=== PATIENT | male | born 1950 | race Caucasian/White ===

== ENCOUNTER 2022-09-21 08:19 | Emergency (ER) | payer OTHER ==
--- OUTSIDE RECORDS SUMMARY | 2022-09-21 08:24 | XMS REPORT | Continuity of Care Document ---
:1950 Author Organization [facility] t Address [address] [facility] [address] [place] [address] Care Team Providers Name Role Phone Luan ALBRIGHT, Phil Fernando Primary Care Physician [phone] Dorcas Beard Attending Clinician Unavailable LINK, JASSON HOLLOWAY Attending Clinician Unavailable LINK, JASSON HOLLOWAY Admitting Clinician Unavailable Problems This patient has no known problems. Allergies, Adverse Reactions, Alerts This patient has no known allergies or adverse reactions. Social History Social Habit Start Date Stop Date Quantity Comments Source History of Current smoker [facility] Alcohol intake 2016-09-04 2016-09-[address] [facility] 00:00[facility]00 00:00:00 non-drinker of Medical Ce nter alcohol (finding) Tobacco use and 2016-09-03 2016-09-03 User of smokeless [facility]:00 tobacco [facility] Center Tobacco Comment 2016-09-03 2016-09-03 quit smoking [address] [facility] 00:00:00 00:00:00 yrs ago. dips 1 Medical C enter can per week on average Sex Assigned At [address] [facility] 00:[facility]00 00:00:00 [facility] Smoking Status Start Date Stop Date Source Ex-smoker 2016-09-03 00:00:00 2016-09-03 00:00:00 [facility] Medications Ordered Filled Start Stop Current Ordering Indication Dosage Frequency Signature Comments Components Source Medication Medication Date Date Medication? Clinician (SIG) Name Name glimepiride Yes 4mg Take [address] (AMARYL) 4 5-26 [facility] tablet 18:04: every Medical 04 morning Center before breakfast. irbesartan Yes 300mg QD Take [address] (AVAPRO) 5-26 mg [facility] 300 MG 18:04: mouth Medical tablet 04 nightly. Center atorvastati Yes 40mg QD Take [address] (LIPITOR) 5-26 by mouth Luke s 40 MG 18:04: nightly. Medical tablet 04 Center aspirin 81 Yes 81mg QD Take [address] [facility] EC 5-26 by [facility] tablet 18:04: daily. Medical 04 Center metFORMIN Yes 1000mg Take 1,[address] (GLUCOPHAGE 5-26 mg [facility] ) 1000 MG 18:04: mouth 2 Medic al tablet 04 (two) Center times daily with breakfast and dinner. Procedures This patient has no known procedures. Encounters Start End Encounter Admission Attending Care Care Encounter Source Date/Time Date/Time Type Type Clinicians Facility Department ID 2022-06-22 Outpatient Wells, [facility] [id number] Common 08:01:00 Dorcas [id number] [facility] 2022-05-20 [facility] [id number] Common 13:32:01 Dorcas [id number] [facility] 2022-03-11 Outpatient Wells, [facility] [id number] Common 07:16:00 Dorcas [address] [facility] 2022-01-22 Outpatient Wells, [facility] [id number] Common 10:12:04 Dorcas [id number] [facility] 2021-11-17 Outpatient Wells, [facility] [id number] Common 08:18:02 Dorcas [facility] 2021-10-14 Outpatient Wells, [facility] [id number] Common 11:22:02 Dorcas [facility] 2021-09-16 Outpatient Wells, [facility] [id number] Common 09:59:02 Dorcas [facility] 2021-08-22 Outpatient Wells, [facility] [id number] Common 07:59:01 Dorcas [facility] 2021-07-[address] [facility] [id number] Common 08:24:03 Dorcas [facility] 2021-05-[address] [facility] [id number] Common 14:33:11 Dorcas [facility] Results Test Description Test Time Test Comments Results Result Comments Source POCT-GLUCOSE METER 2016-09-04 11:46:00 Test Item Value Reference Range Interpretation Comme nts POC-GLUCOSE METER (KD) (test 82 mg/dL 70-110 TESTED AT [facility] [address] [facility] code = 1538) [facility] [id number] 0
[2022-09-21 08:58] LABS: Absolute Lymphocytes (CBC) 2.4 K/uL (0.7-4.9); Hematocrit 43.1 % (39.6-49.0); Lymphocytes % 31.9 % (15.3-44.8); MCV 86.1 fL (80-100); MPV 7.4 fL (7.6-11.3); Specific Gravity 1.023 (1.005-1.030); Urine Bacteria None Seen /HPF (<20); Urine Bilirubin NEGATIVE (Negative); Urine Blood Negative (Negative); Urine Clarity Clear (Clear); Urine Color Yellow (Yellow); Urine Glucose 2+ (Negative); Urine Mucus Slight /HPF (None Seen); Urine Protein 1+ (Negative); Urine RBC <5 /HPF (None Seen); Urine Urobilinogen Normal (Normal)
[2022-09-21] MEDS ORDERED: MORPHINE 4 MG/ML SYR ONE (09:02)
[2022-09-21] MEDS ORDERED: ONDANSETRON 4 MG/2 ML VIAL ONE (09:03)
[2022-09-21 09:15] LABS: Albumin 3.7 g/dL (3.4-5.0); Bilirubin Total 0.9 mg/dL (0.2-1.0); Potassium 4.1 mEq/L (3.5-5.1); Protein, Total 7.4 g/dL (6.4-8.2)
--- NOTE | 2022-09-21 09:19 | RAD REPORT ---
EXAM DESCRIPTION: CT - Stone Protocol - 09/21/2022 8:58 am CLINICAL HISTORY: Flank pain. FLANK PAIN COMPARISON: Stone Protocol dated 11/24/2016 TECHNIQUE: Axial images were obtained without oral or IV contrast. Lack of contrast limits solid org an and vascular assessment. The edygs-on-gayp spans the entirety of the system partially obscuring uppermost abdomen and lung bases. Coronal reformatted images were obtained and reviewed. All CT scans are performed using dose optimization technique as appropriate and may include automated exposure control or mA/KV adjustment according to patient size. FINDINGS: The lower lung acevedo are clear. Imaged portions of the liver and spleen show no suspicious findings on non-contrast imaging. The panc reas and adrenal glands are normal. No pathologic lymphadenopathy in the abdomen or pelvis. Small calculi are present involving both kidneys. No hydronephrosis. No bowel obstruction, free air, free fluid or abscess. Normal appendix noted.Sigmoid diverticulosis c rebecca without diverticulitis. Moderate lumbar degenerative changes. Aortoiliac atherosclerosis. IMPRESSION: Bilateral nephrolithiasis without hydronephrosis.
[2022-09-21] MEDS ORDERED: KETOROLAC 30 MG/ML INJ ONE (10:19)
--- NOTE | 2022-09-21 10:21 | ER ---
Nurse's Notes [facility] Name: Getachew Ervin Age: 71 yrs Sex: Male : 1950 Arrival Date: 09/21/2022 Time: 08:19 Bed 18 Private MD: Diagnosis: Calculus of kidney Presentation: 09/21 08:34 Chief complaint: Patient states: L flank pain that began 3-4 weeks ago. HX of kidney ss stones. Pt believes this may be another one. Denies N/V/D. Coronavirus screen: Client denies travel out of the [place] in the last 14 days. Ebola Screen: Patient denies exposure to infectious person. Patient denies travel to an Ebola-affected area in the 21 days before illness onset. Initial Sepsis Screen: Does the patient meet any 2 criteria? No. Patient's initial sepsis screen is negative. Does the patient have a suspected source of infection? No. Patient's initial sepsis screen is negative. Risk Assessment: Do you want to hurt yourself or someone else? Patient reports no desire to harm self or others. Onset of symptoms was August 2022. 08:34 Method Of Arrival: Ambulatory ss 08:34 Acuity: HERMINIO 3 ss Historical: - Allergies: 08:38 No Known Allergies; ss - PMHx: 08:38 Diabetes - NIDDM; GERD; Hyperlipidemia; Hypertension; Kidney stones; ss - Immunization history:: Client reports receiving the Tiago \\T\\ Tiago single-dose vaccine. - Social history:: Smoking status: Patient reports use of chewing tobacco. Screenin:51 [facility] ED Fall Risk Assessment (Adult) History of falling in the last 3 months, ap3 including since admission No falls in past 3 months (0 pts). Abuse screen: Denies threats or abuse. Nutritional screening: No deficits noted. Tuberculosis screening: No symptoms or risk factors identified. Assessment: 08:50 General: Appears in no apparent distress. Behavior is calm, cooperative. Pain: ap3 Complains of pain in left flank. Neuro: Level of Consciousness is awake, alert, obeys commands, Oriented to person, place, time, situation. Cardiovascular: Patient's skin is warm and dry. Respiratory: Airway is patent Respiratory effort is even, unlabored, Respiratory pattern is regular, symmetrical. GI: Bowel sounds present X 4 quads. Abd is soft. : Reports pain in left flank(s), for "a few weeks". Vital Signs: 08:34 BP 151 / 66; Pulse 78; Resp 16; Temp 98.5(O); Pulse Ox 97% on R/A; Weight 101.6 kg; ss Height 5 ft. 4 in. ; Pain 8/10; 09:55 BP 115 / 53; Pulse 69; Pulse Ox 95% on R/A; ap3 08:34 Body Mass Index 38.45 (101.60 kg, 162.56 cm) ss 08:34 Pain Scale: Adult ss ED Course: 08:22 Patient arrived in ED. mr 08:23 Scotty Brice PA is PHCP. doreen 08:23 Oscar Davis DO is Attending Physician. jmm 08:38 Diann Brasher, CARLY is Primary Nurse. ap3 08:38 Triage completed. ss 08:38 Arm band placed on right wrist. ss 08:47 Inserted saline lock: 22 gauge in right antecubital area, using aseptic technique. ap3 Blood collected. 08:47 Urinalysis w/ reflexes Sent. ap3 08:51 Patient has correct armband on for positive identification. Placed in gown. Bed in low ap3 position. Call light in reach. Side rails up X 1. Pulse ox on. NIBP on. Door closed. Noise minimized. 09:00 CT Stone Protocol In Process Unspecified. EDMS 10:47 No provider procedures requiring assistance completed. IV discontinued, intact, ap3 bleeding controlled, No redness/swelling at site. Pressure dressing applied. Administered Medications: 09:07 Drug: morphine IVP or IV 4 mg Route: IVP; Infused Over: 4 mins; Site: right antecubital;ap3 10:07 Follow up: Response: No adverse reaction; Pain is decreased ap3 09:07 Drug: Ondansetron IVP 4 mg Route: IVP; Site: right antecubital; ap3 10:07 Follow up: Response: No adverse reaction ap3 10:17 Drug: Ketorolac IVP 15 mg Route: IVP; Site: right antecubital; ap3 10:48 Follow up: Response: No adverse reaction ap3 Medication: 10:48 VIS not applicable for this client. ap3 Outcome: 10:21 Discharge ordered by . jmm 10:48 Discharged to home ambulatory. ap3 10:48 Condition: good 10:48 Discharge instructions given to patient, Instructed on discharge instructions, follow up and referral plans. medication usage, Demonstrated understanding of instructions, follow-up care, medications, Prescriptions given X 1. 10:52 Patient left the ED. ap3 Signatures: Dispatcher [employer] EDMS Scotty Brice PA PA jmm Rivera, Mary mr Ayana Poole RN RN Diann Brasher RN RN ap3
--- NOTE | 2022-09-21 10:22 | EDPHYS ---
Physician Documentation [facility] Name: Getachew Ervin Age: 71 yrs Sex: Male : 1950 Arrival Date: 09/21/2022 Time: 08:19 Bed 18 Private MD: ED Physician Oscar Davis HPI: 09/21 08:26 This 71 yrs old Male presents to ER via Ambulatory with complaints of Possible Kidney jmm Stone. 08:26 The patient complains of pain in the left flank. Onset: The symptoms/episode jmm began/occurred gradually. Is a 71-year-old male with history of diabetes mellitus, GERD, hyperlipidemia, hypertension, previous kidney stones the presents emerged part with complaints of ongoing left flank pain beginning approximately 3 to 4 weeks ago. Denies vomiting, fever. Pain will radiate into his left lower quadrant and groin. Patient states he has had multiple surgeries for his kidney stones.. Historical: - Allergies: 08:38 No Known Allergies; ss - PMHx: 08:38 Diabetes - NIDDM; GERD; Hyperlipidemia; Hypertension; Kidney stones; ss - Immunization history:: Client reports receiving the Tiago \T\ Tiago single-dose vaccine. - Social history:: Smoking status: Patient reports use of chewing tobacco. ROS: 08:26 Constitutional: Negative for fever, chills, and weight loss, Cardiovascular: Negative jmm for chest pain, palpitations, and edema, Respiratory: Negative for shortness of breath, cough, wheezing, and pleuritic chest pain. 08:26 Back: Positive for flank pain, on the left. 08:26 All other systems are negative. Exam: 08:26 Constitutional: This is a well developed, well nourished patient who is awake, alert, jmm and in no acute distress. Head/Face: atraumatic. Eyes: EOMI, no conjunctival erythema appreciated ENT: Moist Mucus Membranes Neck: Trachea midline, Supple Chest/axilla: Normal chest wall appearance and motion. Cardiovascular: Regular rate and rhythm. No edema appreciated Respiratory: Normal respirations, no respiratory distress appreciated Abdomen/GI: Non distended 08:26 Skin: General appearance color normal MS/ Extremity: Moves all extremities, no obvious deformities appreciated, no edema noted to the lower extremities Neuro: Awake and alert Psych: Behavior is normal, Mood is normal, Patient is cooperative and pleasant 08:26 Back: pain, that is moderate, of the left flank. Vital Signs: 08:34 BP 151 / 66; Pulse 78; Resp 16; Temp 98.5(O); Pulse Ox 97% on R/A; Weight 101.6 kg; ss Height 5 ft. 4 in. ; Pain 8/10; 09:55 BP 115 / 53; Pulse 69; Pulse Ox 95% on R/A; ap3 08:34 Body Mass Index 38.45 (101.60 kg, 162.56 cm) ss 08:34 Pain Scale: Adult ss MDM: 08:26 Patient medically screened. [facility] 10:20 Data reviewed: vital signs, nurses notes, lab test result(s), radiologic studies. I doreen considered the following discharge prescriptions or medication management in the emergency department Medications were administered in the Emergency Department. See MAR. Counseling: I had a detailed discussion with the patient and/or guardian regarding: the historical points, exam findings, and any diagnostic results supporting the discharge/admit diagnosis, radiology results, the need for outpatient follow up, to return to the emergency department if symptoms worsen or persist or if there are any questions or concerns that arise at home. 10:20 Differential diagnosis: nephrolithiasis, pyelonephritis, UTI, testicular torsion, [facility] diverticulitis, ruptured AAA, dissecting AAA. 09/21 08:35 Order name: CBC with Diff; Complete Time: 09:08 [facility] 09/21 08:35 Order name: CMP; Complete Time: 09:16 [facility] 09/21 08:35 Order name: Lipase; Complete Time: 09:16 [facility] 09/21 08:35 Order name: Urinalysis w/ reflexes; Complete Time: 08:59 [facility] 09/21 08:35 Order name: CT Stone Protocol; Complete Time: 09:19 [facility] 09/21 08:35 Order name: IV Saline Lock; Complete Time: 08:47 [facility] 09/21 08:35 Order name: Labs collected and sent; Complete Time: 08:47 [facility] Administered Medications: 09:07 Drug: morphine IVP or IV 4 mg Route: IVP; Infused Over: 4 mins; Site: right antecubital;ap3 10:07 Follow up: Response: No adverse reaction; Pain is decreased ap3 09:07 Drug: Ondansetron IVP 4 mg Route: IVP; Site: right antecubital; ap3 10:07 Follow up: Response: No adverse reaction ap3 10:17 Drug: Ketorolac IVP 15 mg Route: IVP; Site: right antecubital; ap3 10:48 Follow up: Response: No adverse reaction ap3 Disposition: 12:59 Co-signature as Attending Physician, Oscar Davis DO I was immediately available on-site ms3 in the Emergency Department for consultation in the care of the patient. Disposition Summary: 09/21/22 10:21 Discharge Ordered Location: Home [facility] Condition: Stable [facility] Diagnosis - Calculus of kidney [facility] Followup: [facility] - With: Private Physician - When: 2 - 3 days - Reason: Recheck today's complaints, Continuance of care, Re-evaluation by your physician Discharge Instructions: - Discharge Summary Sheet [facility] - Kidney Stones [facility] Forms: - Medication Reconciliation Form [facility] - Thank You Letter [facility] - Antibiotic Education [facility] - Prescription Opioid Use [facility] Prescriptions: - orphenadrine citrate 100 mg Oral Tablet Sustained Release - take 1 tablet by ORAL route 2 times per day As needed; 20 tablet; Refills: 0, [facility] Product Selection Permitted Signatures: Dispatcher [employer] Scotty Eden PA PA jmm Ayana Poole, Diann Anderson RN, RN RN ap3 Oscar Davis DO DO ms3
[2022-09-21 11:06] VITALS: TEMP 98.5
[2022-09-21 11:12] VITALS: BP 115/53; O2SAT 95
== END 2022-09-21 10:52 | disposition home or self-care (01) ==
LOC: ER 08:19
DX: N20.0 Calculus of kidney (principal); Z87.442 Personal history of urinary calculi; I10 Essential (primary) hypertension; F17.220 Nicotine dependence, chewing tobacco, uncomplicated
CPT/HCPCS: 85025; 81001; 36415; 83690; 80053; 76377; 74176; 96375; 96374; 99284; J2405

== ENCOUNTER 2023-08-19 06:24 | Emergency (ER) | payer OTHER ==
[2023-08-19] MEDS ORDERED: KETOROLAC 30 MG/ML INJ ONE (06:48)
[2023-08-19] MEDS ORDERED: ONDANSETRON 4 MG/2 ML VIAL ONE (06:48)
[2023-08-19] MEDS ORDERED: TAMSULOSIN 0.4 MG SR CAP ONE (06:48)
[2023-08-19] MEDS ORDERED: MORPHINE 4 MG/ML SYR ONE (06:49)
[2023-08-19] MEDS ORDERED: NA CHLORIDE 0.9% 1,000 ML ONE ×2 (06:49→08:34)
[2023-08-19 07:03] LABS: Absolute Basophils 0.1 K/uL (0-0.5); Absolute Eosinophils 0.2 K/uL (0-0.5); Absolute Lymphocytes (CBC) 2.3 K/uL (0.7-4.9); Absolute Monocytes 0.8 K/uL (0.1-1.3); Absolute Neutrophil 4.9 K/uL (1.8-8.0); Basophils % 1.4 % (0-1.3); Eosinophils % 2.7 % (0-4.4); Hematocrit 45.2 % (39.6-49.0); Lymphocytes % 27.9 % (15.3-44.8); MCH 28.2 pg (27.0-35.0); MCHC 33.2 g/dL (32.0-36.0); Monocytes % 9.7 % (3.3-12.3); Neutrophils % 58.3 % (41.7-73.7); Nucleated Red Blood Cells % 0.1 % (0-0); Platelets 234 thou/uL (152-406); RBC Red Blood Cell Count 5.31 M/uL (4.33-5.43); Red Cell Distribution Width 14.7 % (12.1-15.2)
[2023-08-19 07:17] LABS: Albumin 3.3 g/dL (3.4-5.0); Albumin/Globulin Ratio 0.9 (1.1-1.8); Anion Gap 9.1 mEq/L (5.0-15.0); Bilirubin Total 0.7 mg/dL (0.2-1.0); Globulin 3.6 g/dL (2.3-3.5); Potassium 4.1 mEq/L (3.5-5.1); Protein, Total 6.9 g/dL (6.4-8.2)
--- NOTE | 2023-08-19 07:38 | RAD REPORT ---
EXAM DESCRIPTION: CT - Abdomen Pelvis Wo Contrast - 08/19/2023 7:07 am CLINICAL HISTORY: Abdominal pain left flank pain COMPARISON: 2019. TECHNIQUE: Computed axial tomography of the abdomen and pelvis was obtained. IV and oral contrast we re not requested. All CT scans are performed using dose optimization technique as appropriate and may include automated exposure control or mA/KV adjustment according to patient size. FINDINGS: The evaluation of solid organs, vessels and bowel is limited secondary to the lack of con trast administration. 17 millimeter hepatic cyst unchanged likely cyst. Bilateral renal calculi. No hydronephrosis. Dense structures within the bowel have the appearance of ingested tablets Atherosclerosis. Mild stranding within the central mesenteric fat The spleen, pancreas, adrenals appear grossly normal. Small umbilical hernia contains fat The appendix is normal. Diverticula stem the colon without evidence diverticulitis Prostate gland is moderately enlarged. Spondylosis lumbar spine results in spinal stenosis Small left inguinal hernia contains fat IMPRESSION: Mild stranding within the central mesenteric fat may indicate mesenteritis Small bilateral nonobstructing renal calculi
[2023-08-19 07:54] LABS: Urine Bilirubin NEGATIVE (Negative); Urine Blood Negative (Negative); Urine Clarity Clear (Clear); Urine Color Light-Yellow (Yellow); Urine Glucose 4+ (Over) (Negative); Urine Ketones NEGATIVE (Negative); Urine Microscopic Reflex YN NO UMIC; Urine Nitrite NEGATIVE (Negative); Urine Protein NEGATIVE (Negative); Urine Urobilinogen Normal (Normal)
[2023-08-19] MEDS ORDERED: FAMOTIDINE 20 MG/2 ML VIAL IV ONE (08:33)
[2023-08-19] MEDS ORDERED: METRONIDAZOLE 500mg IVPB 500 MG/100 ML BAG IV ONE (08:34)
[2023-08-19] MEDS ORDERED: CIPROFLOXACIN 400mg IV 400 MG/200 ML BAG IV ONE (08:34)
--- NOTE | 2023-08-19 08:52 | EDPHYS ---
Physician Documentation [facility] Name: Getachew Ervin Age: 72 yrs Sex: Male : 1950 Arrival Date: 08/19/2023 Time: 06:24 Bed 17 Private MD: Sharad Roman HPI: 08/18 06:45 This 72 yrs old Male presents to ER via Ambulatory with complaints of sp4 Abdominal Pain. 06:45 72-year-old male presents with acute onset left flank pain pain sudden onset 2 days ago sp4 and intensifying this morning. Patient states pain is typical of his kidney stones. Patient has history of at least 5 prior kidney stones that had to be subjected to lithotripsy. . Historical: - Allergies: 06:37 No Known Allergies; rv - PMHx: 06:37 Diabetes - NIDDM; GERD; Hyperlipidemia; Hypertension; Kidney stones; rv - PSHx: 06:37 None; rv - Immunization history:: Adult Immunizations up to date. - Infectious Disease History:: Denies. - Social history:: Smoking status: Patient denies any tobacco usage or history of. - Family history:: not pertinent. ROS: 06:45 Constitutional: Negative for fever, chills, and weight loss, positive left flank pain sp4 and positive left groin pain 06:45 All other systems are negative, Exam: 06:45 Constitutional: This is a well developed, well nourished patient who is awake, alert, sp4 and in no acute distress. Head/Face: Normocephalic, atraumatic. Eyes: Pupils equal round and reactive to light, extra-ocular motions intact. Lids and lashes normal. Conjunctiva and sclera are not injected. Cornea within normal limits. Periorbital areas with no swelling, redness, or edema. ENT: Nares patent. No nasal discharge, no septal abnormalities noted. Tympanic membranes are normal and external auditory canals are clear. Oropharynx with no redness, swelling, or masses, exudates, or evidence of obstruction, uvula midline. Mucous membranes moist. Neck: Trachea midline, no thyromegaly or masses palpated, and no cervical lymphadenopathy. Supple, full range of motion without nuchal rigidity, or vertebral point tenderness. Chest/axilla: Normal chest wall appearance and motion. Nontender with no deformity. No lesions are appreciated. Cardiovascular: Regular rate and rhythm with a normal S1 and S2. No gallops, murmurs, or rubs. Normal PMI, no JVD. No pulse deficits. Respiratory: Lungs have equal breath sounds bilaterally, clear to auscultation and percussion. No rales, rhonchi or wheezes noted. No increased work of breathing, no retractions or nasal flaring. Abdomen/GI: Soft, with normal bowel sounds. No distension or tympany. No guarding or rebound. No evidence of tenderness throughout. Back: No spinal tenderness. No costovertebral tenderness. Male : Normal genitalia with no discharge or lesions. Skin: Warm, dry with normal turgor. Normal color with no rashes, no lesions, and no evidence of cellulitis. MS/ Extremity: Pulses equal, no cyanosis. Neurovascular intact. Full, normal range of motion. Neuro: Awake and alert, GCS 15, oriented to person, place, time, and situation. Cranial nerves II-XII grossly intact. Motor strength 5/5 in all extremities. Sensory grossly intact. Psych: Awake, alert, with orientation to person, place and time. Behavior, mood, and affect are within normal limits 08:58 ECG was reviewed by the Attending Physician. [place] Vital Signs: 06:35 Pulse 69; Resp 18; Temp 98; Pulse Ox 99% ; Weight 100.24 kg; Height 5 ft. 4 in. ; rv 06:35 BP 144 / 64; rv 07:30 BP 137 / 68; Pulse 65; Resp 16; Pulse Ox 95% ; bp 08:30 BP 142 / 64; Pulse 57; Resp 16; Pulse Ox 96% ; bp 10:30 BP 139 / 67; Pulse 63; Resp 16; Pulse Ox 98% ; bp 06:35 Body Mass Index 37.93 (100.24 kg, 162.56 cm) rv [place] Coma Score: 06:45 Eye Response: spontaneous(4). Motor Response: obeys commands(6). Verbal Response: sp4 oriented(5). Total: 15. MDM: 06:49 Differential Diagnosis altered mental status, sepsis, flu, Acute left ureteral sp4 calculus. Data reviewed: vital signs, nurses notes, lab test result(s), radiologic studies. Consideration of Admission/Observation Escalation of care including admission/observation considered. Transition of care: After a detail discussion of the patient's case, care is transferred to Kulwinder Barton MD. 06:56 Patient medically screened. sp4 07:13 Transition of care: After a detail discussion of the patient's case, care is sp4 transferred to Sharad Vargas MD. 08/18 06:41 Order name: CBC with Diff; Complete Time: 08:02 sp4 08/18 06:41 Order name: CMP; Complete Time: 08:02 sp4 08/18 06:41 Order name: Lipase; Complete Time: 08:02 sp4 08/18 06:41 Order name: Urinalysis w/ reflexes; Complete Time: 08:02 sp4 08/18 06:44 Order name: CT Abd/Pelvis - Without Contrast; Complete Time: 08:02 sp4 08/18 08:19 Order name: EKG; Complete Time: 08:20 farhat 08/18 06:41 Order name: IV Saline Lock; Complete Time: 06:54 sp4 08/18 06:41 Order name: Labs collected and sent; Complete Time: 06:54 sp4 08/18 08:19 Order name: EKG - Nurse/Tech; Complete Time: 08:57 farhat EC:58 Rate is 85 beats/min. Rhythm is regular. QRS [place] is Normal. DC interval is normal. QRS farhat interval is normal. QT interval is normal. No Q waves. T waves are Normal. No ST changes noted. Clinical impression: NSR w/ Non-specific ST/T Changes and No evidence of ischemia. Interpreted by me. Reviewed by me. Administered Medications: 06:55 Drug: Ondansetron IVP 4 mg IVP once; over 2 minutes Route: IVP; Site: right antecubital;ha1 07:31 Follow up: Response: No adverse reaction bp 06:55 Drug: Ondansetron IVP 4 mg IVP once; over 2 minutes Route: IVP; Site: right antecubital;ha1 07:31 Follow up: Response: No adverse reaction bp 06:57 Drug: Ketorolac IVP 30 mg IVP once Route: IVP; Site: right antecubital; ha1 07:31 Follow up: Response: No adverse reaction bp 06:58 Drug: NS 0.9% IV 1000 ml IV at 1 bolus Per protocol; 1000 mL bolus Route: IV; Rate: 1 ha1 bolus; Site: right antecubital; 11:00 Follow up: IV Status: Completed infusion bp 06:58 Drug: Flomax PO 0.4 mg PO once Route: PO; ha1 07:31 Follow up: Response: No adverse reaction bp 06:59 Drug: morphine IVP or IV 4 mg IVP once over 4 mins Route: IVP; Infused Over: 4 mins; ha1 Site: right antecubital; 07:31 Follow up: Response: No adverse reaction bp 08:30 Drug: NS 0.9% IV 1000 ml IV at 125 ml/hr continuous Route: IV; Rate: 125 ml/hr; Site: bp right antecubital; 11:00 Follow up: IV Status: Completed infusion; IV Intake: 1000ml bp 08:30 Drug: metroNIDAZOLE IVPB 500 mg 100 ml IVPB at 200 ml/hr once over 30 mins Volume: 100 bp ml; Route: IVPB; Rate: 200 ml/hr; Infused Over: 30 mins; Site: right antecubital; 11:01 Follow up: IV Status: Completed infusion; IV Intake: 100ml bp 08:30 Drug: Famotidine IVP 20 mg IVP once; dilute with 10 mL 0.9% NaCl; give over 2 minutes bp Route: IVP; Site: right antecubital; 11:00 Follow up: Response: No adverse reaction bp 08:43 Drug: Ciprofloxacin IVPB 400 mg 200 ml IVPB once over 60 mins Volume: 200 ml; Route: bp IVPB; Infused Over: 60 mins; Site: right antecubital; 11:01 Follow up: IV Status: Completed infusion; IV Intake: 200ml bp Disposition Summary: 08/19/23 08:52 Discharge Ordered Notes: Location: Home farhat Problem: new farhat Symptoms: have improved farhat Condition: Stable farhat Diagnosis - Abdominal tenderness - mild stranding within the central mesentary, Mesenteritis farhat Followup: farhat - With: Private Physician - When: 2 - 3 days - Reason: Recheck today's complaints, Continuance of care, Re-evaluation by your physician Followup: farhat - With: Ulysses Maddox MD - When: 2 - 3 days - Reason: Recheck today's complaints, Re-evaluation by your physician Discharge Instructions: - Discharge Summary Sheet farhat - Abdominal Pain, Adult farhat - Abdominal Pain, Adult, [id number] farhat - Aspirin and Your Heart farhat Forms: - Medication Reconciliation Form [place] - Antibiotic Education farhat - Prescription Opioid Use farhat - Patient Portal Instructions [place] - Leadership Thank You Letter [place] Prescriptions: - Flagyl 500 mg Oral tablet - take 1 tablet ORAL route every 8 hours for 7 days; 21 tablet; Refills: 0, [place] Product Selection Permitted - Zofran 4 mg Oral Tablet - take 1 tablet ORAL route every 12 hours As needed; 20 tablet; Refills: 0, [place] Product Selection Permitted - Cipro 500 mg Oral Tablet - take 1 tablet ORAL route every 12 hours for 7 days; 14 tablet; Refills: 0, [place] Product Selection Permitted - dicyclomine 20 mg Oral tablet - take 1 tablet ORAL route 4 times per day; 28 tablet; Refills: 0, Product [place] Selection Permitted Signatures: Dispatcher [employer] EDSharad Paulson MD MD cha Peltier, Brian, RN RN Hardik Sandra RN RN Brenda Diaz RN RN ha1 Frank Abdi MD MD sp4 Corrections: (The following items were deleted from the chart) 06:42 06:42 CBC+H.LAB.BRZ ordered. EDMS EDMS 06:42 06:42 COMPREHENSIVE METABOLIC PANEL+C.LAB.BRZ ordered. EDMS EDMS 06:42 06:42 LIPASE+C.LAB.BRZ ordered. EDMS EDMS 06:42 06:42 Urinalysis+U.LAB.BRZ ordered. EDMS EDMS 06:45 06:45 Abdomen Pelvis Wo Con+CT.RAD.BRZ ordered. EDMS EDMS
--- NOTE | 2023-08-19 08:52 | ER ---
Nurse's Notes [facility] Name: Getachew Ervin Age: 72 yrs Sex: Male : 1950 Arrival Date: 08/19/2023 Time: 06:24 Bed 17 Private MD: Diagnosis: Abdominal tenderness-mild stranding within the central mesentary, Mesenteritis Presentation: 08/18 06:35 Chief complaint: Patient states: LLQ ABD PAIN GOING AROUND TO LEFT FLANK. DENIES N/V/D. rv HISTORY OF KIDNEY STONES. DENIES URINE SYMPTOMS. Coronavirus screen: At this time, the client does not indicate any symptoms associated with coronavirus-19. Ebola Screen: No symptoms or risks identified at this time. Initial Sepsis Screen: Does the patient meet any 2 criteria? No. Patient's initial sepsis screen is negative. Does the patient have a suspected source of infection? No. Patient's initial sepsis screen is negative. Risk Assessment: Do you want to hurt yourself or someone else? Patient reports no desire to harm self or others. Onset of symptoms was August 17, 2023. 06:35 Method Of Arrival: Ambulatory rv 06:35 Acuity: HERMINIO 3 rv Triage Assessment: 06:37 General: Appears comfortable, Behavior is calm, cooperative. Pain: Complains of pain in rv left lower quadrant Pain radiates to LEFT FLANK. Neuro: Level of Consciousness is awake, alert, obeys commands, Oriented to person, place, time, situation. Cardiovascular: Capillary refill < 3 seconds Patient's skin is warm and dry. Respiratory: Airway is patent Respiratory effort is even, unlabored. GI: Abdomen is round non-distended. Derm: Skin is intact. Historical: - Allergies: 06:37 No Known Allergies; rv - PMHx: 06:37 Diabetes - NIDDM; GERD; Hyperlipidemia; Hypertension; Kidney stones; rv - PSHx: 06:37 None; rv - Immunization history:: Adult Immunizations up to date. - Infectious Disease History:: Denies. - Social history:: Smoking status: Patient denies any tobacco usage or history of. - Family history:: not pertinent. Screenin:38 [facility] ED Fall Risk Assessment (Adult) History of falling in the last 3 months, rv including since admission No falls in past 3 months (0 pts) Score/Fall Risk Level 0 - 2 = Low Risk Oriented to surroundings, Maintained a safe environment, Educated pt \T\ family on fall prevention, incl call for assistance when getting out of bed, Assessed \T\ reinforced patient's understanding of fall precautions. Abuse screen: Denies threats or abuse. Denies injuries from another. Nutritional screening: No deficits noted. Tuberculosis screening: No symptoms or risk factors identified. Assessment: 06:38 General: Appears uncomfortable, Behavior is calm, cooperative. Pain: Complains of pain ha1 in LEFT FLANK Pain does not radiate. Pain currently is 10 out of 10 on a pain scale. Quality of pain is described as throbbing, Pain began suddenly. Neuro: Level of Consciousness is awake, alert, obeys commands, Oriented to person, place, time, situation. Cardiovascular: Capillary refill < 3 seconds Patient's skin is warm and dry. Respiratory: Airway is patent Respiratory effort is even, unlabored, Respiratory pattern is regular, symmetrical. GI: Abdomen is round non-distended, Bowel sounds present X 4 quads. Abd is soft and non tender. : Reports pain flank(s). Derm: Skin is pink, warm \T\ dry. Musculoskeletal: Circulation, motion, and sensation intact. Range of motion: intact in all extremities. 07:00 Reassessment: RECD REPORT FROM SILVIA CARROLL. 72YO WM P/W FLANK PAIN AND H/O KIDNEY STONE. bp PT CURRENTLY IN CT. 08:30 Reassessment: Patient appears in no apparent distress at this time. Patient is alert, bp oriented x 3, equal unlabored respirations, skin warm/dry/pink. 09:00 Reassessment: DC ON HOLD FOR ABX. bp 10:59 Reassessment: DC HOME AMBULATORY. bp Vital Signs: 06:35 Pulse 69; Resp 18; Temp 98; Pulse Ox 99% ; Weight 100.24 kg; Height 5 ft. 4 in. ; rv 06:35 BP 144 / 64; rv 07:30 BP 137 / 68; Pulse 65; Resp 16; Pulse Ox 95% ; bp 08:30 BP 142 / 64; Pulse 57; Resp 16; Pulse Ox 96% ; bp 10:30 BP 139 / 67; Pulse 63; Resp 16; Pulse Ox 98% ; bp 06:35 Body Mass Index 37.93 (100.24 kg, 162.56 cm) rv [place] Coma Score: 06:45 Eye Response: spontaneous(4). Motor Response: obeys commands(6). Verbal Response: sp4 oriented(5). Total: 15. ED Course: 06:31 Patient arrived in ED. gm2 06:37 Triage completed. rv 06:37 Arm band placed on right wrist. rv 06:38 Patient has correct armband on for positive identification. Client placed on continuous rv cardiac and pulse oximetry monitoring. NIBP monitoring applied. 06:38 No provider procedures requiring assistance completed. rv 06:41 Frank Abdi MD is Attending Physician. sp4 06:46 Silvia Main, RN is Primary Nurse. ha1 06:54 CBC with Diff Sent. rv 06:54 CMP Sent. rv 06:54 Lipase Sent. rv 06:59 Inserted saline lock: 20 gauge in right antecubital area, using aseptic technique. rv1 Blood collected. 07:08 CT Abd/Pelvis - Without Contrast In Process Unspecified. EDMS 07:16 Attending Physician role handed off by Frank Abdi MD farhat 07:16 Sharad Vargas MD is Attending Physician. farhat 07:31 Urinalysis w/ reflexes Sent. bp 07:32 Urine collected: clean catch specimen, clear. bp 07:33 Primary Nurse role handed off by Silvia Main RN bp 07:33 Marcelo Guillermo, CARLY is Primary Nurse. bp 08:52 Ulysses Maddox MD is Referral Physician. farhat 11:00 IV discontinued, intact, bleeding controlled, No redness/swelling at site. Pressure bp dressing applied. Administered Medications: 06:55 Drug: Ondansetron IVP 4 mg IVP once; over 2 minutes Route: IVP; Site: right antecubital;ha1 07:31 Follow up: Response: No adverse reaction bp 06:55 Drug: Ondansetron IVP 4 mg IVP once; over 2 minutes Route: IVP; Site: right antecubital;ha1 07:31 Follow up: Response: No adverse reaction bp 06:57 Drug: Ketorolac IVP 30 mg IVP once Route: IVP; Site: right antecubital; ha1 07:31 Follow up: Response: No adverse reaction bp 06:58 Drug: NS 0.9% IV 1000 ml IV at 1 bolus Per protocol; 1000 mL bolus Route: IV; Rate: 1 ha1 bolus; Site: right antecubital; 11:00 Follow up: IV Status: Completed infusion bp 06:58 Drug: Flomax PO 0.4 mg PO once Route: PO; ha1 07:31 Follow up: Response: No adverse reaction bp 06:59 Drug: morphine IVP or IV 4 mg IVP once over 4 mins Route: IVP; Infused Over: 4 mins; ha1 Site: right antecubital; 07:31 Follow up: Response: No adverse reaction bp 08:30 Drug: NS 0.9% IV 1000 ml IV at 125 ml/hr continuous Route: IV; Rate: 125 ml/hr; Site: bp right antecubital; 11:00 Follow up: IV Status: Completed infusion; IV Intake: 1000ml bp 08:30 Drug: metroNIDAZOLE IVPB 500 mg 100 ml IVPB at 200 ml/hr once over 30 mins Volume: 100 bp ml; Route: IVPB; Rate: 200 ml/hr; Infused Over: 30 mins; Site: right antecubital; 11:01 Follow up: IV Status: Completed infusion; IV Intake: 100ml bp 08:30 Drug: Famotidine IVP 20 mg IVP once; dilute with 10 mL 0.9% NaCl; give over 2 minutes bp Route: IVP; Site: right antecubital; 11:00 Follow up: Response: No adverse reaction bp 08:43 Drug: Ciprofloxacin IVPB 400 mg 200 ml IVPB once over 60 mins Volume: 200 ml; Route: bp IVPB; Infused Over: 60 mins; Site: right antecubital; 11:01 Follow up: IV Status: Completed infusion; IV Intake: 200ml bp Medication: 06:38 VIS not applicable for this client. rv Intake: 11:00 IV: 1000ml; Total: 1000ml. bp 11:01 IV: 200ml; Total: 1200ml. bp 11:01 IV: 100ml; Total: 1300ml. bp Outcome: 08:52 Discharge ordered by . farhta 11:00 Discharged to home ambulatory, bp 11:00 Condition: stable 11:00 Discharge instructions given to patient, Instructed on discharge instructions, follow up and referral plans. medication usage, Demonstrated understanding of instructions, follow-up care, medications, Prescriptions given X 4, 11:01 Patient left the ED. bp Signatures: Dispatcher [employer] EDMS Sharad Vargas MD MD farhat Mima, Marcelo, RN RN bp Hardik Gamez RN RN rv Silvia Main RN RN ha1 Grace Swanson rv1 Frank Abdi MD MD sp4 Rani Dominguez 2
[2023-08-19 11:39] VITALS: BP 139/67; TEMP 98; O2SAT 98
--- NOTE | 2023-08-23 13:33 | EKG ---
Test Date: 2023-08-19 Test Time: 08:56:33 Senior Inspector: GARRET MEASUREMENT RESULTS: Intervals: Rate: 57 MA: 192 QRSD: 98 QT: 438 QTc: 426 [place]: P: 54 MA: 192 QRS: 66 T: 61 INTERPRETIVE STATEMENTS: Sinus bradycardia Low voltage QRS Cannot rule out Anterior infarct, age undetermined Abnormal ECG Compared to ECG 01/12/2017 19:05:28 Low QRS voltage now present Myocardial infarct finding now present Sinus rhythm no longer present Electronically Signed On 08-23-23 13:20:45 CDT by Loi Lugo
== END 2023-08-19 11:01 | disposition home or self-care (01) ==
LOC: ER 06:24
DX: K65.4 Sclerosing mesenteritis (principal); E11.9 Type 2 diabetes mellitus without complications; I10 Essential (primary) hypertension; Z87.442 Personal history of urinary calculi
CPT/HCPCS: 96365; 96361; 93005; 85025; 36415; 81003; 83690; 80053; 74176; 96375; 99284; 96366; J2405; J0744; J7030 ×2

== ENCOUNTER 2024-02-04 07:21 | Emergency (ER) | payer OTHER ==
--- NOTE | 2024-02-04 07:54 | EDPHYS ---
Physician Documentation [facility] Name: Getachew Ervin Age: 73 yrs Sex: Male : 1950 Arrival Date: 02/04/2024 Time: 07:21 Bed 19 Private MD: ED Physician Telma Morris HPI: 02/03 07:47 This 73 yrs old Male presents to ER via Ambulatory with complaints of Low Back Pain, sd2 Hip Pain - left. 07:47 73 yo M presents with CC of L low back, mostly gluteal pain for the past 3 days. sd2 Reports almost falling a few days ago but it didn't hurt at that time. No other trauma. Pain radiates down the back of his thigh to his knee. Prior hx of back surgery for herniated disc. Prior hx of kidney stones but states does not feel similar. Denies fever, n/v/d, back pain, bowel or bladder symptoms.. Historical: - Allergies: 07:42 No Known Allergies; bp - PMHx: 07:42 Diabetes - NIDDM; GERD; Hyperlipidemia; Hypertension; Kidney stones; bp - Immunization history:: Adult Immunizations up to date. - Infectious Disease History:: Denies. - Social history:: Smoking status: Patient denies any tobacco usage or history of. ROS: 07:47 Constitutional: Negative for fever, chills, and weight loss, Eyes: Negative for injury, sd2 pain, redness, and discharge, Cardiovascular: Negative for chest pain, palpitations, and edema, Respiratory: Negative for shortness of breath, cough, wheezing. Abdomen/GI: Negative for abdominal pain, nausea, vomiting, diarrhea. 07:47 : Negative for dysuria, frequency or hematuria. MS/Extremity: Negative for injury and deformity, Skin: Negative for injury, rash, and discoloration, Neuro: Negative for headache, numbness and tingling. 07:47 Back: Positive for pain with movement, radiated pain, Negative for injury or acute deformity, flank pain, Exam: 07:47 Constitutional: This is a well developed, well nourished patient who is awake, alert, sd2 and in no acute distress. Head/Face: Normocephalic, atraumatic. Eyes: EOMI, normal conjunctiva bilaterally Cardiovascular: Regular rate and rhythm with a normal S1 and S2. No gallops, murmurs, or rubs. 2+ distal pulses. Respiratory: Lungs have equal breath sounds bilaterally, clear to auscultation and percussion. No rales, rhonchi or wheezes noted. No increased work of breathing, no retractions or nasal flaring. Abdomen/GI: Soft, non-tender, with normal bowel sounds. No guarding or rebound. No evidence of tenderness throughout. Back: No spinal tenderness. No costovertebral tenderness. Full range of motion. Skin: Warm, dry with normal turgor. Normal color with no rashes, no lesions, and no evidence of cellulitis. MS/ Extremity: Pulses equal, no cyanosis. Neurovascular intact. Full, normal range of motion. L posterior hip/gluteal tenderness in the sciatic area. Neuro: Awake and alert, GCS 15, oriented to person, place, time, and situation. Motor strength 5/5 in all extremities. Sensory grossly intact. Normal gait. Psych: Awake, alert, with orientation to person, place and time. Behavior, mood, and affect are within normal limits. Vital Signs: 07:41 BP 114 / 75; Pulse 66; Resp 16; Temp 98; Pulse Ox 99% ; Weight 93.89 kg; Height 5 ft. 4 bp in. ; 07:41 Body Mass Index 35.53 (93.89 kg, 162.56 cm) bp MDM: 07:47 Medical Screening Exam initiated sd2 07:47 Differential diagnosis: arthritis, strain, fracture, sciatica, contusion, Herniated sd2 disc UTI, among others. Data reviewed: vital signs, nurses notes. I considered the following discharge prescriptions or medication management in the emergency department Medications were administered in the Emergency Department. See MAR. Test considered but Not performed: X-ray: No traumatic injury or red flags to indicate need for emergent imaging. . Care significantly affected by the following chronic conditions: Diabetes, Hypertension. Counseling: I had a detailed discussion with the patient and/or guardian regarding the historical points, exam findings, and any diagnostic results supporting the discharge/admit diagnosis, the need for outpatient follow up, to return to the emergency department if symptoms worsen or persist or if there are any questions or concerns that arise at home. ED course: Discussed steroids with patient for likely sciatica based on physical exam. Reports BGL normally 140s-150s but has not been tracking as much recently. Will check blood glucose in ER. Reports has glucometer and sliding scale insulin at home to adjust as needed and has been on steroids before. He took Ibuprofen 800 mg just 3-4 hours ago so no further NSAIDs given and patient is driving so no narcotics given in ER or muscle relaxants. Will prescribe for home. Pt is ambulatory. No focal neuro deficits. Agreeable to plan. Verbalizes understanding of dc plan and strict return precautions. . 02/03 08:08 Order name: Glucose, Ancillary Testing; Complete Time: 08:09 EDMS 02/03 07:47 Order name: Glucose Level; Complete Time: 08:03 sd2 Administered Medications: 08:00 Drug: Lidoderm Topical Patch 5 % (700 mg/patch) 1 patches Topical once; leave on for 12 bp hours; cover most painful area; may cut into smaller pieces Route: Topical; Site: affected area; 08:00 Drug: predniSONE PO 60 mg PO once Route: PO; bp 08:34 Follow up: Response: No adverse reaction bp Disposition Summary: 02/04/24 07:53 Discharge Ordered Problem: new sd2 Symptoms: have improved sd2 Condition: Stable sd2 Diagnosis - Lumbago with sciatica, left side sd2 Followup: sd2 - With: Private Physician - When: 2 - 3 days - Reason: Recheck today's complaints, Continuance of care, Re-evaluation by your physician Discharge Instructions: - Discharge Summary Sheet sd2 - Sciatica sd2 - Radicular Pain sd2 Forms: - Medication Reconciliation Form sd2 - Antibiotic Education sd2 - Prescription Opioid Use sd2 - Patient Portal Instructions sd2 - Leadership Thank You Letter sd2 Prescriptions: - Lidoderm 5 % Topical adhesive patch, medicated - apply 1 patch TOPICAL route daily As needed leave on most painful area for up sd2 to 12 hrs; 10 patch; Refills: 0, Product Selection Permitted - Ibuprofen 800 mg Oral tablet - take 1 tablet ORAL route every 8 hours As needed take with food; 20 tablet; sd2 Refills: 0, Product Selection Permitted - Tramadol 50 mg Oral tablet - take 1 tablet ORAL route every 6-8 hours as needed; 12 tablet; Refills: 0, sd2 Product Selection Permitted - Medrol (Zenon) 4 mg Oral Tablets, Dose Pack - take 1 tablet ORAL route as directed - follow package instructions; 1 packet; sd2 Refills: 0, Product Selection Permitted - methocarbamol 750 mg Oral tablet - take 1 tablet ORAL route every 8 hours As needed; 15 tablet; Refills: 0, sd2 Product Selection Permitted Signatures: Marcelo Guillermo RN RN bp Dunlop, Stephanie, MD MD 2
--- NOTE | 2024-02-04 07:54 | ER ---
Nurse's Notes [facility] Name: Getachew Ervin Age: 73 yrs Sex: Male : 1950 Arrival Date: 02/04/2024 Time: 07:21 Bed 19 Private MD: Diagnosis: Lumbago with sciatica, left side Presentation: 02/03 07:41 Chief complaint: Patient states: LEFT SCIATIC PATTERN PAIN x3 DAYS. Coronavirus screen: bp At this time, the client does not indicate any symptoms associated with coronavirus-19. Ebola Screen: No symptoms or risks identified at this time. Initial Sepsis Screen: Does the patient meet any 2 criteria? No. Patient's initial sepsis screen is negative. Does the patient have a suspected source of infection? No. Patient's initial sepsis screen is negative. Risk Assessment: Do you want to hurt yourself or someone else? Patient reports no desire to harm self or others. Onset of symptoms is unknown. 07:41 Method Of Arrival: Ambulatory bp 07:41 Acuity: HERMINIO 4 bp Triage Assessment: 07:42 General: Appears in no apparent distress. uncomfortable, Behavior is calm, cooperative, bp appropriate for age. Pain: Complains of pain in left leg. EENT: No deficits noted. Neuro: No deficits noted. Cardiovascular: No deficits noted. Respiratory: No deficits noted. GI: No signs and/or symptoms were reported involving the gastrointestinal system. : No signs and/or symptoms were reported regarding the genitourinary system. Derm: No deficits noted. Musculoskeletal: Range of motion: intact in all extremities. Historical: - Allergies: 07:42 No Known Allergies; bp - PMHx: 07:42 Diabetes - NIDDM; GERD; Hyperlipidemia; Hypertension; Kidney stones; bp - Immunization history:: Adult Immunizations up to date. - Infectious Disease History:: Denies. - Social history:: Smoking status: Patient denies any tobacco usage or history of. Screenin:43 [facility] ED Fall Risk Assessment (Adult) History of falling in the last 3 months, bp including since admission No falls in past 3 months (0 pts) Confusion or Disorientation No (0 pts) Intoxicated or Sedated No (0 pts) Impaired Gait No (0 pts) Mobility Assist Device Used No (0 pt) Altered Elimination No (0 pt) Score/Fall Risk Level 0 - 2 = Low Risk Oriented to surroundings. Abuse screen: Denies threats or abuse. Denies injuries from another. Nutritional screening: No deficits noted. Tuberculosis screening: No symptoms or risk factors identified. Assessment: 07:43 General: Appears in no apparent distress. uncomfortable, Behavior is calm, cooperative, bp appropriate for age. Vital Signs: 07:41 BP 114 / 75; Pulse 66; Resp 16; Temp 98; Pulse Ox 99% ; Weight 93.89 kg; Height 5 ft. 4 bp in. ; 07:41 Body Mass Index 35.53 (93.89 kg, 162.56 cm) bp ED Course: 07:24 Patient arrived in ED. ra3 07:30 Telma Morris MD is Attending Physician. sd2 07:41 Marcelo Guillermo RN is Primary Nurse. bp 07:42 Triage completed. bp 07:42 Arm band placed on. bp 07:43 Patient has correct armband on for positive identification. bp Administered Medications: 08:00 Drug: Lidoderm Topical Patch 5 % (700 mg/patch) 1 patches Topical once; leave on for 12 bp hours; cover most painful area; may cut into smaller pieces Route: Topical; Site: affected area; 08:00 Drug: predniSONE PO 60 mg PO once Route: PO; bp 08:34 Follow up: Response: No adverse reaction bp Medication: 07:43 VIS not applicable for this client. bp Outcome: 07:53 Discharge ordered by . sd2 08:33 Patient left the ED. bp Signatures: Marcelo Guillermo RN RN bp Telma Morris MD MD sd2 Abbie Lees ra3
[2024-02-04] MEDS ORDERED: predniSONE 20 MG TAB ONE (07:59)
[2024-02-04] MEDS ORDERED: LIDOCAINE 4% PATCH ONE (07:59)
[2024-02-04 19:06] VITALS: BP 114/75; TEMP 98; O2SAT 99
== END 2024-02-04 08:33 | disposition home or self-care (01) ==
LOC: ER 07:21
DX: M54.42 Lumbago with sciatica, left side (principal)
CPT/HCPCS: 82947; 99282; J7512; J2001

== ENCOUNTER 2024-07-14 19:37 | Emergency (ER) | payer OTHER ==
[2024-07-14 20:56] LABS: Absolute Basophils 0.1 K/uL (0-0.5); Absolute Eosinophils 0.2 K/uL (0-0.5); Absolute Lymphocytes (CBC) 2.4 K/uL (0.7-4.9); Absolute Monocytes 0.8 K/uL (0.1-1.3); Absolute Neutrophil 5.9 K/uL (1.8-8.0); Basophils % 1.1 % (0-1.3); Hematocrit 42.7 % (39.6-49.0); Hemoglobin 14.8 g/dL (13.6-17.9); Lymphocytes % 25.4 % (15.3-44.8); MCH 29.1 pg (27.0-35.0); MCHC 34.6 g/dL (32.0-36.0); MCV 84.1 fL (80-100); MPV 7.8 fL (7.6-11.3); Monocytes % 8.4 % (3.3-12.3); Neutrophils % 63.1 % (41.7-73.7); Nucleated Red Blood Cells % 0.1 % (0-0); Platelets 209 thou/uL (152-406); RBC Red Blood Cell Count 5.08 M/uL (4.33-5.43); Red Cell Distribution Width 15.8 % (12.1-15.2)
[2024-07-14 21:10] LABS: Anion Gap 6.9 mEq/L (5.0-15.0); Potassium 3.9 mEq/L (3.5-5.1)
--- NOTE | 2024-07-14 22:14 | RAD REPORT ---
EXAMINATION: Maxillofacial W/Cont CLINICAL INDICATION: Male, 73 years old. Left Parotid TTP and swelling TECHNIQUE: Axial images were obtained through the facial bones and orbits with intravenous contrast. Sagittal and coronal reconstructions were created from the data. One or more of the following dose reduction techniques were used: Automated exposure control, adjustment of the mA and/or kV according to patient size, and/or iterative reconstruction. Unless otherwise specified, incidental findings do not require dedicated imaging follow-up. [id number]. COMPARISON: No prior exam. FINDINGS: SOFT TISSUE: No acute soft tissue abnormality. Bilateral ICA stenoses which is severe on the left and probably severe on the right as well. BONES: No evidence of fracture, dislocation, or aggressive osseous lesions. No lesion of the visuali zed skull base or calvarium. The patient is edentulous. ORBITS: The globes are intact. No intraorbital hemorrhage or mass. SINUSES: The paranasal sinuses and tympanomastoid cavities are predominantly clear. BRAIN: No acute abnormalities in the visualized intracranial structures. IMPRESSION: No acute finding identified. Severe, left greater than right, ICA stenoses secondary to calcified plaque.
--- NOTE | 2024-07-14 22:43 | ER ---
Nurse's Notes [facility] Name: Getachew Ervin Age: 73 yrs Sex: Male : 1950 Arrival Date: 07/14/2024 Time: 19:37 Bed 14 Private MD: Diagnosis: Parotiditis;Internal carotid artery stenosis Presentation: 07/14 20:19 Chief complaint: Patient states: he has been having left upper jaw pain for approx 4-5 ap3 days that has gotten worse today. patient currently rates his pain as an 8/10 on the pain scale. Coronavirus screen: At this time, the client does not indicate any symptoms associated with coronavirus-19. Ebola Screen: No symptoms or risks identified at this time. Initial Sepsis Screen: Does the patient meet any 2 criteria? No. Patient's initial sepsis screen is negative. Does the patient have a suspected source of infection? No. Patient's initial sepsis screen is negative. Risk Assessment: Do you want to hurt yourself or someone else? Patient reports no desire to harm self or others. Onset of symptoms was July 11, 2024. 20:19 Method Of Arrival: Ambulatory ap3 20:19 Acuity: HERMINIO 3 ap3 Triage Assessment: 20:20 General: Appears in no apparent distress. Behavior is calm, cooperative, appropriate ap3 for age. Pain: Complains of pain in left jaw Pain currently is 8 out of 10 on a pain scale. Neuro: Level of Consciousness is awake, alert, obeys commands, Oriented to person, place, time, situation, Appropriate for age. Cardiovascular: Patient's skin is warm and dry. Respiratory: Airway is patent Respiratory effort is even, unlabored, Respiratory pattern is regular, symmetrical. Historical: - Allergies: 20:20 No Known Allergies; ap3 - PMHx: 20:20 Diabetes - NIDDM; GERD; Hyperlipidemia; Hypertension; Kidney stones; ap3 - Immunization history:: Client reports receiving the 2nd dose of the Covid vaccine. - Infectious Disease History:: Denies. - Social history:: Smoking status: Patient reports use of chewing tobacco. Screenin:21 Abuse screen: Denies threats or abuse. Nutritional screening: No deficits noted. ap3 Tuberculosis screening: No symptoms or risk factors identified. 20:21 [facility] ED Fall Risk Assessment (Adult) History of falling in the last 3 months, ap3 including since admission Yes- single mechanical fall (1 pt) Confusion or Disorientation No (0 pts) Intoxicated or Sedated No (0 pts) Impaired Gait No (0 pts) Mobility Assist Device Used No (0 pt) Altered Elimination No (0 pt) Score/Fall Risk Level 0 - 2 = Low Risk Oriented to surroundings, Maintained a safe environment, Educated pt \T\ family on fall prevention, incl call for assistance when getting out of bed, Assessed \T\ reinforced patient's understanding of fall precautions, Hourly rounding (assess needs \T\ fall precautionary measures) done, Used ambulatory aids as needed (educated on \T\ assisted with). Assessment: 20:39 General: Appears in no apparent distress. comfortable, Behavior is calm, cooperative, rg5 appropriate for age. Pain: Complains of pain in left jaw Quality of pain is described as aching. Neuro: Level of Consciousness is awake, alert, Oriented to person, place, time, situation. Cardiovascular: Patient's skin is warm and dry. Respiratory: Airway is patent Trachea midline Respiratory effort is even, unlabored, Respiratory pattern is regular, symmetrical. GI: Abdomen is round non-distended, Abd is soft and non tender. : No signs and/or symptoms were reported regarding the genitourinary system. EENT: No deficits noted. Derm: Skin is intact, Skin is dry, Skin is normal. Musculoskeletal: Circulation, motion, and sensation intact. Range of motion: intact in all extremities. 21:33 Reassessment: No changes from previously documented assessment. Patient and/or family rg5 updated on plan of care and expected duration. Pain level reassessed. Patient is alert, oriented x 3, equal unlabored respirations, skin warm/dry/pink. Vital Signs: 20:19 BP 132 / 65; Pulse 68; Resp 18; Temp 98.6(O); Pulse Ox 98% on R/A; Weight 89.36 kg; ap3 Height 5 ft. 4 in. ; Pain 8/10; 20:38 BP 141 / 70; Pulse 60; Resp 18; Pulse Ox 99% ; rg5 21:33 BP 143 / 61; Pulse 61; Resp 18; Pulse Ox 98% on R/A; rg5 20:19 Body Mass Index 33.81 (89.36 kg, 162.56 cm) ap3 20:19 Pain Scale: Adult ap3 ED Course: 19:41 Patient arrived in ED. jj6 19:59 Osacr Davis DO is Attending Physician. ms3 20:20 Triage completed. ap3 20:21 Arm band placed on right wrist. ap3 20:28 Rigoberto Diaz, RN is Primary Nurse. rg5 20:39 Door closed. Noise minimized. Pillow given. rg5 20:39 No provider procedures requiring assistance completed. rg5 20:49 Inserted saline lock: 22 gauge in left forearm, using aseptic technique. Blood oe collected. Flushed with 10 mL NS. 20:49 BMP Sent. oe 20:49 CBC with Diff Sent. oe 21:48 Maxillofacial W/Cont In Process Unspecified. EDMS 22:55 Provided Education on: post er care done. rg5 22:55 IV discontinued, bleeding controlled, No redness/swelling at site. Pressure dressing rg5 applied. Administered Medications: 22:46 Drug: Clindamycin PO 300 mg PO once Route: PO; rg5 22:56 Follow up: Response: No adverse reaction rg5 Medication: 20:39 VIS not applicable for this client. rg5 Outcome: 22:42 Discharge ordered by MD. ms3 22:54 Discharged to home ambulatory, rg5 22:54 Condition: stable 22:54 Discharge instructions given to patient, Instructed on discharge instructions, follow up and referral plans. Demonstrated understanding of instructions, follow-up care, Prescriptions given X 1, 22:55 Patient left the ED. rg5 Signatures: Dispatcher [employer] EDMS Romaine Vera Amanda RN CARLY ap3 Oscar Davis DO DO ms3 Gail Eugene jj6 Rigoberto Diaz, RN RN rg5
--- NOTE | 2024-07-14 22:43 | EDPHYS ---
Physician Documentation [facility] Name: Getachew Ervin Age: 73 yrs Sex: Male : 1950 Arrival Date: 07/14/2024 Time: 19:37 Bed 14 Private MD: ED Physician Oscar Davis HPI: 07/14 20:21 This 73 yrs old Male presents to ER via Ambulatory with complaints of Jaw Pain, ms3 SWELLING OF JAW. 20:21 73-year-old male with past medical history of diabetes, GERD, hypertension, kidney ms3 stones, hyperlipidemia presents to the emergency department for left facial swelling and pain. He rates the pain a 9/10. He denies fevers, chills, nausea, vomiting. Patient states this has been ongoing for 4 to 5 days. Historical: - Allergies: 20:20 No Known Allergies; ap3 - PMHx: 20:20 Diabetes - NIDDM; GERD; Hyperlipidemia; Hypertension; Kidney stones; ap3 - Immunization history:: Client reports receiving the 2nd dose of the Covid vaccine. - Infectious Disease History:: Denies. - Social history:: Smoking status: Patient reports use of chewing tobacco. ROS: 20:21 Constitutional: Negative for fever, and chills. Cardiovascular: Negative for chest ms3 pain, and palpitations. Respiratory: Negative for shortness of breath, cough, wheezing, and pleuritic chest pain, Abdomen/GI: Negative for abdominal pain, nausea, vomiting, diarrhea, and constipation, MS/Extremity: Negative for injury and deformity, 20:21 ENT: Positive for facial pain, Exam: 20:21 Constitutional: This is a well developed, well nourished patient who is awake, alert, ms3 and in no acute distress. Chest/axilla: Normal chest wall appearance and motion. Nontender with no deformity. Cardiovascular: Regular rate and rhythm with a normal S1 and S2. No gallops, murmurs, or rubs. Normal PMI, no JVD. No pulse deficits. Respiratory: Lungs have equal breath sounds bilaterally, clear to auscultation and percussion. No rales, rhonchi or wheezes noted. No increased work of breathing, no retractions or nasal flaring. Abdomen/GI: Soft, non-tender, with normal bowel sounds. No distension or tympany. No guarding or rebound. No evidence of tenderness throughout. Skin: Warm, dry with normal turgor. Normal color with no rashes, no lesions, and no evidence of cellulitis. MS/ Extremity: Pulses equal, no cyanosis. Neurovascular intact. Full, normal range of motion. 20:21 ENT: Left parotid with mild swelling and TTP. Vital Signs: 20:19 BP 132 / 65; Pulse 68; Resp 18; Temp 98.6(O); Pulse Ox 98% on R/A; Weight 89.36 kg; ap3 Height 5 ft. 4 in. ; Pain 8/10; 20:38 BP 141 / 70; Pulse 60; Resp 18; Pulse Ox 99% ; rg5 21:33 BP 143 / 61; Pulse 61; Resp 18; Pulse Ox 98% on R/A; rg5 20:19 Body Mass Index 33.81 (89.36 kg, 162.56 cm) ap3 20:19 Pain Scale: Adult ap3 MDM: 20:18 Medical Screening Exam initiated ms3 20:21 Differential diagnosis: sialolithiasis vs parotiditis. ms3 07/15 00:32 Data reviewed: vital signs, nurses notes, lab test result(s), radiologic studies, and ms3 as a result, I will discharge patient. I considered the following discharge prescriptions or medication management in the emergency department Medications were administered in the Emergency Department. See MAR. Counseling: I had a detailed discussion with the patient and/or guardian regarding the historical points, exam findings, and any diagnostic results supporting the discharge/admit diagnosis, lab results, radiology results, the need for outpatient follow up, to return to the emergency department if symptoms worsen or persist or if there are any questions or concerns that arise at home. Special discussion: I discussed with the patient/guardian in detail that at this point there is no indication for admission to the hospital. It is understood, however, that if the symptoms persist or worsen the patient needs to return immediately for re-evaluation. ED course: Discussed labs and CT maxillofacial imaging showing severe carotid stenosis. Discussed with patient to follow-up with primary care physician regarding these findings. Patient understands agrees with plan. Questions were answered. Return precautions discussed include worsening symptoms, or any other concerns. Patient given prescription for clindamycin for possible parotitis.. 07/14 20:18 Order name: CBC with Diff; Complete Time: 21:17 ms3 07/14 20:18 Order name: BMP; Complete Time: 21:17 ms3 07/14 20:22 Order name: Maxillofacial W/Cont; Complete Time: 22:16 EDMS Administered Medications: 07/14 22:46 Drug: Clindamycin PO 300 mg PO once Route: PO; rg5 22:56 Follow up: Response: No adverse reaction rg5 Disposition: 07/15 00:40 Chart complete. ms3 Disposition Summary: 07/14/24 22:42 Discharge Ordered Notes: Location: Home ms3 Condition: Stable ms3 Diagnosis - Parotiditis ms3 - Internal carotid artery stenosis ms3 Followup: ms3 - With: Private Physician - When: 2 - 3 days - Reason: Recheck today's complaints Discharge Instructions: - Discharge Summary Sheet ms3 - Parotitis, [id number] ms3 Forms: - Medication Reconciliation Form ms3 - Antibiotic Education ms3 - Prescription Opioid Use ms3 - Patient Portal Instructions ms3 - Leadership Thank You Letter ms3 Prescriptions: - Clindamycin HCl 300 mg Oral Capsule - take 1 capsule ORAL route every 6 hours for 10 days; 40 capsule; Refills: 0, ms3 Product Selection Permitted Signatures: Dispatcher [employer] EDDiann Coreas RN RN ap3 Oscar Davis DO DO ms3 Rigoberto Diaz, RN RN rg5 Corrections: (The following items were deleted from the chart) 07/14 20:19 20:19 CBC+H.LAB.BRZ ordered. EDMS EDMS 20:19 20:19 BASIC METABOLIC PANEL+C.LAB.BRZ ordered. EDMS EDMS
[2024-07-14 23:31] VITALS: TEMP 98.6
[2024-07-14 23:42] VITALS: BP 143/61; O2SAT 98
== END 2024-07-14 22:55 | disposition home or self-care (01) ==
LOC: ER 19:37
DX: K11.20 Sialoadenitis, unspecified (principal); I65.23 Occlusion and stenosis of bilateral carotid arteries; I10 Essential (primary) hypertension; F17.220 Nicotine dependence, chewing tobacco, uncomplicated
CPT/HCPCS: 85025; 80048; 36415; 70487; 99284; Q9967

== ENCOUNTER 2025-01-11 08:49 | Emergency (ER) | payer OTHER ==
--- NOTE | 2025-01-11 09:50 | RAD REPORT ---
EXAMINATION: ONE VIEW CHEST XR CLINICAL INDICATION: Male, 74 years old.,CHEST PAIN TECHNIQUE: Frontal chest projection is submitted. Examination is limited by patient positioning and t echnique. COMPARISON: 01/12/2017 FINDINGS: The lungs are well inflated and clear. No pneumothorax or sizable effusion. The heart is normal in s ize. Mediastinal contours are within normal limits with sequelae of CABG. IMPRESSION: No acute intrathoracic abnormalities.
[2025-01-11 10:20] LABS: Absolute Lymphocytes (CBC) 2.1 K/uL (0.7-4.9); Hematocrit 52.0 % (39.6-49.0); Hemoglobin 17.4 g/dL (13.6-17.9); MCH 28.2 pg (27.0-35.0); MCHC 33.4 g/dL (32.0-36.0); MCV 84.5 fL (80-100); MPV 8.2 fL (7.6-11.3); Nucleated RBC Absolute Count 0.0 (0-0); Nucleated Red Blood Cells % 0.2 % (0-0); RBC Red Blood Cell Count 6.16 M/uL (4.33-5.43); White Blood Count 9.30 thou/uL (4.3-10.9)
[2025-01-11 11:40] LABS: Anion Gap 9.2 mEq/L (5.0-15.0); BUN Blood Urea Nitrogen 23.0 mg/dL (7-18); Glucose Level 105.0 mg/dL (74-106); Potassium 4.2 mEq/L (3.5-5.1); Troponin High Sensitivity 5.2 pg/mL (<58.9)
[2025-01-11] MEDS ORDERED: ONDANSETRON 4 MG/2 ML VIAL ONE (11:48)
[2025-01-11] MEDS ORDERED: MORPHINE 4 MG/ML SYR ONE (11:49)
[2025-01-11] MEDS ORDERED: NA CHLORIDE 0.9% 1,000 ML ONE (11:49)
[2025-01-11] MEDS ORDERED: KETOROLAC 30 MG/ML INJ ONE (12:18)
--- NOTE | 2025-01-11 12:19 | EDPHYS ---
Physician Documentation [facility] Name: Getachew Ervin Age: 74 yrs Sex: Male : 1950 Arrival Date: 01/11/2025 Time: 08:49 Bed 20 Private MD: ED Physician Kulwinder Barton HPI: 01/11 09:58 This 74 yrs old Male presents to ER via Ambulatory with complaints of Chest dr5 Pain, Back Pain. 09:58 Onset: The symptoms/episode began/occurred 2 week(s) ago. Patient is a 74-year-old male dr5 with history of diabetes, GERD, hyperlipidemia, hypertension coming in with intermittent chest pain substernal without radiation for the past 2 weeks. Patient reports that lifting heavy weights makes pain worse. Patient reports he had abdominal ultrasound completed yesterday that showed gallbladder sludge and primary care doctor said that was normal for his age. 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 . Historical: - Allergies: 09:19 No Known Allergies; bp - PMHx: 09:19 Diabetes - NIDDM; GERD; Hyperlipidemia; Hypertension; Kidney stones; bp - Immunization history:: Adult Immunizations up to date. - Infectious Disease History:: Denies. - Social history:: Smoking status: unknown. ROS: 09:58 Constitutional: as per hpi dr5 Exam: 09:58 Constitutional: This is a well developed, well nourished patient who is awake, alert, dr5 and in no acute distress. Head/Face: Normocephalic, atraumatic. Eyes: Pupils equal round and reactive to light, extra-ocular motions intact. Lids and lashes normal. Conjunctiva and sclera are non-icteric and not injected. Cornea within normal limits. Periorbital areas with no swelling, redness, or edema. Neck: Trachea midline, no thyromegaly or masses palpated, and no cervical lymphadenopathy. Supple, full range of motion without nuchal rigidity, or vertebral point tenderness. No Meningismus. Chest/axilla: Normal chest wall appearance and motion. Nontender with no deformity. No lesions are appreciated. Cardiovascular: Regular rate and rhythm with a normal S1 and S2. Normal PMI, no JVD. No pulse deficits. Respiratory: Lungs have equal breath sounds bilaterally, clear to auscultation. No rales, rhonchi or wheezes noted. No increased work of breathing, no retractions or nasal flaring. Abdomen/GI: Soft, non-tender, non-distended Back: No spinal tenderness. No costovertebral tenderness. Full range of motion. Skin: Warm, dry with normal turgor. Normal color with no rashes, no lesions, and no evidence of cellulitis. MS/ Extremity: Pulses equal, no cyanosis. Neurovascular intact. Full, normal range of motion. Neuro: Awake and alert, GCS 15, oriented to person, place, time, and situation. Cranial nerves II-XII grossly intact. Motor strength 5/5 in all extremities. Sensory grossly intact. Cerebellar exam normal. Normal gait. Vital Signs: 09:17 BP 110 / 88; Pulse 86; Resp 16; Temp 98; Pulse Ox 98% ; bp 10:30 BP 136 / 79; Pulse 69; Resp 18 S; ar8 11:30 BP 124 / 87; Pulse 69; Resp 18; Pulse Ox 98% on R/A; Pain 10/10; ar8 11:47 BP 161 / 78; Pulse 67; Resp 19; Pulse Ox 100% on R/A; Pain 8/10; ar8 12:30 Pain 8/10; ar8 12:47 BP 143 / 67; Pulse 70; Resp 17; Pulse Ox 98% on R/A; ar8 12:52 Pain 7/10; ar8 11:30 Pain Scale: Adult ar8 11:47 Pain Scale: Adult ar8 12:30 Pain Scale: Adult ar8 12:52 Pain Scale: Adult ar8 MDM: 09:00 Medical Screening Exam initiated dr5 14:29 Differential diagnosis: viral Infection, bacterial infection, NSTEMI, PNA, Anemia, dr5 Costochondritis. Data reviewed: vital signs, nurses notes, lab test result(s), cardiac enzymes, troponin i, CBC, white blood cell count, hemoglobin, hematocrit, platelets, electrolytes, sodium, potassium, chloride, serum bicarbonate, BUN, creatinine, serum glucose, EKG, radiologic studies, plain films. Consideration of Admission/Observation Escalation of care including admission/observation considered. Escalation considered patient found to have elevated troponin or abnormality on chest x-ray. I considered the following discharge prescriptions or medication management in the emergency department I discussed and recommended Over The Counter medications, Medications were administered in the Emergency Department. See MAR. Care significantly affected by the following chronic conditions: Diabetes, GERD, hyperlipidemia, hypertension. Care significantly affected by the following Social Determinants of Health: Poor access to healthcare and/or lack of insurance, Poor access to transportation, Problems related to employment. Counseling: I had a detailed discussion with the patient and/or guardian regarding the historical points, exam findings, and any diagnostic results supporting the discharge/admit diagnosis, the presence of at least one elevated blood pressure reading (>120/80) during this emergency department visit, lab results, radiology results, the need for outpatient follow up, for definitive care, a family practitioner, to return to the emergency department if symptoms worsen or persist or if there are any questions or concerns that arise at home. Medication response: morphine relieved the patient's pain. Symptoms have resolved, Toradol relieved patient's pain. The symptoms have resolved. Response to treatment: the patient's symptoms have resolved after treatment, the patient's condition has returned to base line, the patient is now symptom free. Special discussion: Based on the patient's history, exam, and Dx evaluation, there is no indication for emergent intervention or inpatient Tx. It is understood by the patient/guardian that if the Sx's persist or worsen they need to return immediately for re-evaluation. I discussed with the patient/guardian in detail that at this point there is no indication for admission to the hospital. It is understood, however, that if the symptoms persist or worsen the patient needs to return immediately for re-evaluation. Based on the history and exam findings, there is no indication for further emergent testing or inpatient evaluation. I discussed with the patient/guardian the need to see the primary care provider for further evaluation of the symptoms. ED course: Patient reports his chest pain has resolved and feeling better. Negative troponin and normal labs. 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 All labs and chest x-ray printed and given to patient take with him. All question answered. Vital signs stable. Strict ER precautions.. 01/11 09:03 Order name: Basic Metabolic Panel; Complete Time: 11:41 dr5 01/11 09:03 Order name: CBC with Diff; Complete Time: 10:35 dr5 01/11 09:03 Order name: Troponin HS; Complete Time: 11:41 dr5 01/11 09:03 Order name: XRAY Chest (1 view); Complete Time: 09:50 dr5 01/11 09:03 Order name: Cardiac monitoring; Complete Time: 10:52 dr5 01/11 09:03 Order name: EKG - Nurse/Tech; Complete Time: 10:07 dr5 01/11 09:03 Order name: IV Saline Lock; Complete Time: 10:52 dr5 01/11 09:03 Order name: Labs collected and sent; Complete Time: 10: dr5 01/11 09:03 Order name: O2 Per Protocol; Complete Time: 10: dr5 01/11 09:03 Order name: O2 Sat Monitoring; Complete Time: 10: dr5 01/11 11:28 Order name: Labs - recollect needed: green; Complete Time: 11:45 bc6 Administered Medications: 11:53 Drug: Ondansetron IVP 4 mg IVP once; over 2 minutes Route: IVP; Site: left forearm; ar8 12:50 Follow up: Response: No adverse reaction ar8 11:53 Drug: NS 0.9% IV 1000 ml IV at 1000 ml once; to be given as a bolus over 60 minutes ar8 Route: IV; Rate: 1000 ml; Site: left forearm; 12:50 Follow up: Response: No adverse reaction; IV Status: Completed infusion; IV Intake: ar8 1000ml 11:55 Drug: morphine IVP or IV 4 mg IVP once over 4 mins Route: IVP; Infused Over: 4 mins; ar8 Site: left forearm; 12:30 Follow up: Pain 8/10 Adult; Response: No adverse reaction; Pain is decreased ar8 12:38 Drug: Ketorolac IVP 15 mg IVP once Route: IVP; Site: left forearm; ar8 12:52 Follow up: Pain 7/10 Adult; Response: No adverse reaction; Pain is decreased ar8 Disposition: 18:39 Co-signature as Attending Physician, Kulwinder Barton MD I reviewed the patient's care rn provided by the Advanced Practice Provider and agree with the diagnosis and treatment plan. Disposition Summary: 01/11/25 12:18 Discharge Ordered Notes: Location: Home dr5 Condition: Stable dr5 Diagnosis - Costochondritis dr5 Followup: dr5 - With: Emergency Department - When: As needed - Reason: Worsening of condition Followup: dr5 - With: Private Physician - When: 1 - 2 days - Reason: Recheck today's complaints, Continuance of care, Re-evaluation by your physician Discharge Instructions: - Discharge Summary Sheet dr5 - Costochondritis, [id number] dr5 Forms: - Medication Reconciliation Form dr5 - Patient Portal Instructions dr5 - Leadership Thank You Letter dr5 Prescriptions: - Ibuprofen 800 mg Oral Tablet - take 1 tablet ORAL route every 12 hours As needed take with food; 20 tablet; dr5 Refills: 0, Product Selection Permitted Signatures: Dispatcher [employer] EDMS Kulwinder Barton MD MD rn Peltier, Brian, RN RN bp Huyen Shankar bc6 Vikash Daly, SILICATOR-C SILICATOR-Cdr5 Phill Steele RN RN ar8 Corrections: (The following items were deleted from the chart) 09:04 09:04 BASIC METABOLIC PANEL+C.LAB.BRZ ordered. EDMS EDMS 09:04 09:04 CBC+H.LAB.BRZ ordered. EDMS EDMS 09:04 09:04 Troponin High Sensitivity+C.LAB.BRZ ordered. EDMS EDMS 09:04 09:04 Chest Single View+RAD.RAD.BRZ ordered. EDMS EDMS
--- NOTE | 2025-01-11 12:19 | ER ---
Nurse's Notes [facility] Name: Getachew Ervin Age: 74 yrs Sex: Male : 1950 Arrival Date: 01/11/2025 Time: 08:49 Bed 20 Private MD: Diagnosis: Costochondritis Presentation: 01/11 09:17 Chief complaint: Patient states: CP x2 WK. SEEN BY CARDIO LAST WEEK AND CLEARED, ECHO bp Y/D. SENT BY PCP TODAY. Coronavirus screen: At this time, the client does not indicate any symptoms associated with coronavirus-19. Ebola Screen: No symptoms or risks identified at this time. Initial Sepsis Screen: Does the patient meet any 2 criteria? No. Patient's initial sepsis screen is negative. Does the patient have a suspected source of infection? No. Patient's initial sepsis screen is negative. Risk Assessment: Do you want to hurt yourself or someone else? Patient reports no desire to harm self or others. Onset of symptoms is unknown. 09:17 Method Of Arrival: Ambulatory bp 09:17 Method Of Arrival: Ambulatory bp 09:17 Acuity: HERMINIO 3 bp Triage Assessment: 09:19 General: Appears in no apparent distress. uncomfortable, Behavior is cooperative, bp appropriate for age, anxious. Pain: Complains of pain in chest. EENT: No deficits noted. Neuro: No deficits noted. Cardiovascular: Reports chest pain. Respiratory: No deficits noted. GI: No signs and/or symptoms were reported involving the gastrointestinal system. : No signs and/or symptoms were reported regarding the genitourinary system. Derm: No deficits noted. Musculoskeletal: No deficits noted. Historical: - Allergies: 09:19 No Known Allergies; bp - PMHx: 09:19 Diabetes - NIDDM; GERD; Hyperlipidemia; Hypertension; Kidney stones; bp - Immunization history:: Adult Immunizations up to date. - Infectious Disease History:: Denies. - Social history:: Smoking status: unknown. Screenin:30 [facility] ED Fall Risk Assessment (Adult) History of falling in the last 3 months, ar8 including since admission No falls in past 3 months (0 pts) Confusion or Disorientation No (0 pts) Intoxicated or Sedated No (0 pts) Impaired Gait No (0 pts) Mobility Assist Device Used No (0 pt) Altered Elimination No (0 pt) Score/Fall Risk Level 0 - 2 = Low Risk Oriented to surroundings, Maintained a safe environment. Abuse screen: Denies threats or abuse. Nutritional screening: No deficits noted. Tuberculosis screening: No symptoms or risk factors identified. Assessment: 10:48 General: Appears in no apparent distress. uncomfortable, Behavior is calm, cooperative. ar8 Pain: Complains of pain in mid-sternal area Pain currently is 10 out of 10 on a pain scale. Pain began 2 wks. Neuro: Level of Consciousness is awake, alert, obeys commands, Oriented to person, place, time, situation. Cardiovascular: Reports chest pain, Patient's skin is warm and dry. Respiratory: Airway is patent Respiratory effort is even, unlabored, Respiratory pattern is regular, symmetrical. Respiratory: Breath sounds are clear bilaterally. GI: No signs and/or symptoms were reported involving the gastrointestinal system. : No signs and/or symptoms were reported regarding the genitourinary system. EENT: No signs and/or symptoms were reported regarding the EENT system. Derm: Skin is intact, Skin is dry, Skin is pink, warm \T\ dry. Skin temperature is warm. Musculoskeletal: No signs and/or symptoms reported regarding the musculoskeletal system. Vital Signs: 09:17 BP 110 / 88; Pulse 86; Resp 16; Temp 98; Pulse Ox 98% ; bp 10:30 BP 136 / 79; Pulse 69; Resp 18 S; ar8 11:30 BP 124 / 87; Pulse 69; Resp 18; Pulse Ox 98% on R/A; Pain 10/10; ar8 11:47 BP 161 / 78; Pulse 67; Resp 19; Pulse Ox 100% on R/A; Pain 8/10; ar8 12:30 Pain 8/10; ar8 12:47 BP 143 / 67; Pulse 70; Resp 17; Pulse Ox 98% on R/A; ar8 12:52 Pain 7/10; ar8 11:30 Pain Scale: Adult ar8 11:47 Pain Scale: Adult ar8 12:30 Pain Scale: Adult ar8 12:52 Pain Scale: Adult ar8 ED Course: 08:53 Patient arrived in ED. im 08:55 Vikash Daly FNP-C [facility]. dr5 08:55 Kulwinder Barton MD is Attending Physician. dr5 09:18 Triage completed. bp 09:19 Arm band placed on. bp 09:46 XRAY Chest (1 view) In Process Unspecified. EDMS 10:08 Initial lab(s) drawn, by me, sent to lab. EKG done, by ED staff, reviewed by Kulwinder Barton MD. Missed attempt(s): 22 gauge Bleeding controlled, band aid applied, catheter tip intact. 10:30 Bed in low position. Call light in reach. Side rails up X2. Provided Education on: plan ar8 of care, diagnostics and estimated wait time. Client placed on continuous cardiac and pulse oximetry monitoring. NIBP monitoring applied. Warm blanket given. 10:35 Phill Steele, RN is Primary Nurse. ar8 10:45 No provider procedures requiring assistance completed. Inserted saline lock: 22 gauge ar8 in left forearm, using aseptic technique. Flushed with 10 mL NS. 10:45 Patient maintains SpO2 saturation greater than 95% on room air. ar8 12:52 IV discontinued, intact, bleeding controlled, No redness/swelling at site. Pressure ar8 dressing applied. Administered Medications: 11:53 Drug: Ondansetron IVP 4 mg IVP once; over 2 minutes Route: IVP; Site: left forearm; ar8 12:50 Follow up: Response: No adverse reaction ar8 11:53 Drug: NS 0.9% IV 1000 ml IV at 1000 ml once; to be given as a bolus over 60 minutes ar8 Route: IV; Rate: 1000 ml; Site: left forearm; 12:50 Follow up: Response: No adverse reaction; IV Status: Completed infusion; IV Intake: ar8 1000ml 11:55 Drug: morphine IVP or IV 4 mg IVP once over 4 mins Route: IVP; Infused Over: 4 mins; ar8 Site: left forearm; 12:30 Follow up: Pain 8/10 Adult; Response: No adverse reaction; Pain is decreased ar8 12:38 Drug: Ketorolac IVP 15 mg IVP once Route: IVP; Site: left forearm; ar8 12:52 Follow up: Pain 7/10 Adult; Response: No adverse reaction; Pain is decreased ar8 Medication: 10:30 VIS not applicable for this client. ar8 Intake: 12:50 IV: 1000ml; Total: 1000ml. ar8 Outcome: 12:18 Discharge ordered by . dr5 12:52 Discharged to home ambulatory, ar8 12:52 Condition: stable 12:52 Discharge instructions given to patient, Instructed on discharge instructions, follow up and referral plans. medication usage, Demonstrated understanding of instructions, follow-up care, medications, Prescriptions given X 1, 12:54 Patient left the ED. ar8 Signatures: Dispatcher [employer] EDMarcelo Albarran, RN RN [place] Christian Tylor ty Rhodes, Dustin, PRISM INSPECTOR-C PRISM INSPECTOR-[facility]5 Phill Steele RN RN ar8 Corrections: (The following items were deleted from the chart) 12:47 11:47 BP 143 / 67; Pulse 70bpm; Resp 17bpm; Pulse Ox 98% RA; ar8 ar8
[2025-01-11 12:58] VITALS: TEMP 98
[2025-01-11 13:04] VITALS: BP 143/67; O2SAT 98
== END 2025-01-11 12:54 | disposition home or self-care (01) ==
LOC: ER 08:49
DX: M94.0 Chondrocostal junction syndrome [Tietze] (principal); I10 Essential (primary) hypertension
CPT/HCPCS: 96361; 93005; 85025; 80048; 36415; 84484; 71045; 96375; 96374; 99284; J1885; J2405; J7030

== ENCOUNTER 2025-01-24 16:07 | Emergency (ER) | payer OTHER ==
--- NOTE | 2025-01-24 17:23 | RAD REPORT ---
EXAMINATION: ONE VIEW CHEST XR CLINICAL INDICATION: Male, 74 years old.,PAIN TECHNIQUE: Frontal chest projection is submitted. Examination is limited by patient positioning and t echnique. COMPARISON: 01/11/2025 FINDINGS: The lungs are well inflated and clear. No pneumothorax or sizable effusion. The heart is normal in s ize. Mediastinal contours are unremarkable. IMPRESSION: No acute intrathoracic abnormalities.
[2025-01-24] MEDS ORDERED: ONDANSETRON 4 MG (ODT) TAB ONE (17:56)
[2025-01-24] MEDS ORDERED: MORPHINE 4 MG/ML SYR ONE ×2 (17:56→18:35)
[2025-01-24] MEDS ORDERED: NA CHLORIDE 0.9% 1,000 ML ONE (17:56)
[2025-01-24] MEDS ORDERED: FAMOTIDINE 20 MG/2 ML VIAL IV ONE (17:56)
[2025-01-24 18:07] LABS: Urine Microscopic Reflex YN NO UMIC
[2025-01-24 18:13] LABS: Absolute Lymphocytes (CBC) 3.2 K/uL (0.7-4.9); Hematocrit 50.7 % (39.6-49.0); Hemoglobin 17.4 g/dL (13.6-17.9); MCH 28.6 pg (27.0-35.0); MCHC 34.4 g/dL (32.0-36.0); MCV 83.3 fL (80-100); MPV 7.6 fL (7.6-11.3); Nucleated RBC Absolute Count 0.0 (0-0); Nucleated Red Blood Cells % 0.2 % (0-0); PT Prothrombin Time 12.1 SECONDS (10-13.0); Protime INR 1.07; RBC Red Blood Cell Count 6.08 M/uL (4.33-5.43); White Blood Count 12.30 thou/uL (4.3-10.9)
--- NOTE | 2025-01-24 18:38 | ER ---
Nurse's Notes [facility] Name: Getachew Ervin Age: 74 yrs Sex: Male : 1950 Arrival Date: 01/24/2025 Time: 16:07 Bed 7 Private MD: Diagnosis: Abdominal pain, Generalized;Abnormal findings on diagnostic imaging of liver and biliary tract;Abnormal findings on diagnostic imaging of other specified body structures Presentation: 01/24 16:21 Chief complaint: Patient states: PAIN TO LT UPPER STOMACH THAT RADIATES TO RT UPPER dd2 STOMACH ALL THE WAY AROUND TO BACK, AND CHEST. PT REPORTS THIS HAS BEEN HURTING FOR 4 WEEKS. PT DENIES N/V. PT STATES HE WAS HERE ON 01/11 WITH SAME PAIN AND WAS SENT HERE TODAY BY GI. Coronavirus screen: At this time, the client does not indicate any symptoms associated with coronavirus-19. Ebola Screen: No symptoms or risks identified at this time. Initial Sepsis Screen: Does the patient meet any 2 criteria? No. Patient's initial sepsis screen is negative. Does the patient have a suspected source of infection? No. Patient's initial sepsis screen is negative. Risk Assessment: Do you want to hurt yourself or someone else? Patient reports no desire to harm self or others. Onset of symptoms was January 11, 2025. 16:21 Method Of Arrival: Ambulatory dd2 16:21 Acuity: HERMINIO 3 dd2 Triage Assessment: 16:25 General: Appears in no apparent distress. uncomfortable, Behavior is calm, cooperative, dd2 appropriate for age. Pain: Complains of pain in anterior aspect of left lateral abdomen and left upper quadrant Pain radiates to mid back area, anterior aspect of right lateral abdomen, posterior aspect of right lateral abdomen and right upper quadrant Pain currently is 10 out of 10 on a pain scale. Cardiovascular: Reports chest pain. GI: Reports upper abdominal pain. Musculoskeletal: Reports pain in mid back area. Historical: - Allergies: 16:24 No Known Allergies; dd2 - PMHx: 16:24 Diabetes - NIDDM; GERD; Hyperlipidemia; Hypertension; Kidney stones; dd2 16:25 Coronary atherosclerosis; dd2 - PSHx: 16:24 Coronary artery bypass graft; dd2 - Immunization history:: Adult Immunizations up to date. - Infectious Disease History:: Denies. - Social history:: Smoking status: Patient denies any tobacco usage or history of. - Family history:: not pertinent. Screenin:09 [facility] ED Fall Risk Assessment (Adult) History of falling in the last 3 months, at6 including since admission No falls in past 3 months (0 pts) Confusion or Disorientation No (0 pts) Intoxicated or Sedated No (0 pts) Impaired Gait No (0 pts) Mobility Assist Device Used No (0 pt) Altered Elimination No (0 pt) Score/Fall Risk Level 0 - 2 = Low Risk Oriented to surroundings, Maintained a safe environment. Abuse screen: Denies threats or abuse. Denies injuries from another. Nutritional screening: No deficits noted. Tuberculosis screening: No symptoms or risk factors identified. Assessment: 16:34 Reassessment: Patient and/or family updated on plan of care and expected duration. Pain ll1 level reassessed. 16:34 General: Appears in no apparent distress. uncomfortable, Behavior is calm, cooperative, cc6 appropriate for age. 16:34 Pain: Complains of pain in left upper quadrant and left lower quadrant Pain radiates to cc6 left low back, left mid back, right mid back and right low back Pain currently is 8 out of 10 on a pain scale. Quality of pain is described as sharp. Neuro: Level of Consciousness is awake, alert, Oriented to person, place, time, situation. Cardiovascular: Patient's skin is warm and dry. Respiratory: Airway is patent Respiratory effort is even, unlabored, Respiratory pattern is regular, symmetrical. GI: Bowel sounds present X 4 quads. Abd is soft Abdomen is tender to palpation in right upper quadrant and right lower quadrant. : No signs and/or symptoms were reported regarding the genitourinary system. EENT: No signs and/or symptoms were reported regarding the EENT system. Derm: No signs and/or symptoms reported regarding the dermatologic system. Musculoskeletal: Range of motion: intact in all extremities. 17:20 Reassessment: Patient and/or family updated on plan of care and expected duration. Pain cc6 level reassessed. Patient is alert, oriented x 3, equal unlabored respirations, skin warm/dry/pink. 18:55 Reassessment: Patient and/or family updated on plan of care and expected duration. Pain cc6 level reassessed. Patient is alert, oriented x 3, equal unlabored respirations, skin warm/dry/pink. 20:07 Reassessment: Patient appears in no apparent distress at this time. Patient is alert, at6 oriented x 3, equal unlabored respirations, skin warm/dry/pink. 21:17 Reassessment: patient ambulated to the restroom independently at this time. at6 22:30 Reassessment: Patient and/or family updated on plan of care and expected duration. Pain nh2 level reassessed. Patient is alert, oriented x 3, equal unlabored respirations, skin warm/dry/pink. patient appears in no apparent distress. 23:30 Reassessment: Patient and/or family updated on plan of care and expected duration. Pain nh2 level reassessed. Patient is alert, oriented x 3, equal unlabored respirations, skin warm/dry/pink. Patient denies pain at this time. 01/25 00:30 Reassessment: pt disconnected from monitor, ambulating to restroom independently. nh2 00:39 Reassessment: pt reconnected to monitor. denies needs or concerns, call light placed nh2 within arms reach. 00:55 Reassessment: Report was given to David CARROLL at receiving facility. at6 Vital Signs: 01/24 16:21 BP 150 / 88; Pulse 77; Resp 16; Temp 98.3; Pulse Ox 100% ; Weight 83.91 kg; Pain 10/10; dd2 17:20 BP 168 / 81; Pulse 102; Resp 18; Pulse Ox 100% on R/A; cc6 18:56 BP 140 / 77; Pulse 74; Resp 17; Pulse Ox 97% on R/A; Pain 5/10; cc6 19:18 BP 141 / 77; Pulse 67; Resp 18; Pulse Ox 97% on R/A; at6 20:12 BP 137 / 82; Pulse 75; Resp 13; Temp 98.3; Pulse Ox 96% ; bm8 22:05 BP 157 / 77; Pulse 73; Resp 18; Pulse Ox 95% on R/A; at6 23:00 BP 125 / 67; Pulse 66; Resp 14; Pulse Ox 95% on R/A; nh2 23:30 BP 150 / 80; Pulse 74; Resp 14; Pulse Ox 96% on R/A; nh2 23:59 BP 148 / 77; Pulse 77; Resp 13; Pulse Ox 95% on R/A; nh2 01/25 00:57 BP 143 / 81; Pulse 85; Resp 18; Temp 98.9; Pulse Ox 93% ; at6 01/24 16:21 Pain Scale: Adult dd2 18:56 Pain Scale: Adult cc6 ED Course: 01/24 16:10 Patient arrived in ED. im 16:13 Sharad Vargas MD is Attending Physician. farhat 16:20 Radiology exam delayed due to lab results not completed at this time. (BUN/Creatinine) jc4 IV insertion attempt and/or patient not having appropriate IV at this time. 16:24 Triage completed. dd2 16:25 Arm band placed on right wrist. dd2 16:34 Patient placed in an exam room, on a stretcher. ll1 16:49 XRAY Chest (1 view) In Process Unspecified. EDMS 17:37 Sabine Cox, RN is Primary Nurse. ph 18:17 Missed attempt(s): 22 gauge in left forearm. Bleeding controlled, band aid applied, ph catheter tip intact. Missed attempt(s): 24 gauge in left antecubital area. Bleeding controlled, band aid applied, catheter tip intact. 18:24 Lab(s) recollected, by me, sent to lab. Inserted saline lock: 22 gauge in right upper ll1 arm, using aseptic technique. Blood collected. Flushed with 10 mL NS. 18:36 Shanelle Wise MD is Hospitalizing Provider. farhat 18:52 US Abdomen Limited In Process Unspecified. EDMS 19:16 CT Aorta for Dissection In Process Unspecified. EDMS 20:10 Patient has correct armband on for positive identification. Bed in low position. Call at6 light in reach. Side rails up X 1. Provided Education on: nonpharmacological pain management. 20:10 No provider procedures requiring assistance completed. at6 21:09 Attending Physician role handed off by Sharad Vargas MD tt7 21:09 Trae Renner DO is Attending Physician. tt7 21:49 Initiated transfer with [facility] spoke with Erna. vk 22:03 Inserted saline lock: 18 gauge in left forearm, using aseptic technique. at6 01/25 00:52 Patient was accepted to [facility] to Stephane Loza \T\[id number] accepting admin Erna vk H \T\[id number], Report # [phone]. 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 vk 00:57 Patient transferred, IV remains in place. at6 Administered Medications: 01/24 18:00 Drug: morphine IVP or IV 4 mg IVP once over 4 mins Route: IVP; Infused Over: 4 mins; cc6 Site: right upper arm; 19:01 Follow up: Response: No adverse reaction cc6 18:39 Drug: morphine IVP or IV 4 mg IVP once over 4 mins Route: IVP; Infused Over: 4 mins; cc6 Site: right upper arm; 19:00 Follow up: Response: No adverse reaction; Pain is decreased; RASS: Alert and Calm (0) cc6 18:40 Drug: Ondansetron Oral Disintegrating Tablet Oral Disintegrating Tablet 8 mg PO once; cc6 may repeat once in 8-12 hours Route: PO; 19:00 Follow up: Response: No adverse reaction cc6 18:40 Drug: Famotidine IVP 20 mg IVP once; dilute with 10 mL 0.9% NaCl; give over 2 minutes cc6 Route: IVP; Site: right upper arm; 19:00 Follow up: Response: No adverse reaction cc6 18:42 Drug: NS 0.9% IV 1000 ml IV at 1000 ml once; to be given as a bolus over 60 minutes cc6 Route: IV; Rate: 1000 ml; Site: right upper arm; 21:18 Follow up: Response: No adverse reaction; IV Status: Completed infusion at6 19:49 Drug: HYDROmorphone IVP 1 mg IVP once Route: IVP; Site: right upper arm; bm8 20:09 Follow up: Response: Pain is decreased at6 21:36 Drug: Piperacillin-Tazobactam IVPB 4.5 grams IVPB once over 60 mins; (mix in 100 mL NS) at6 Route: IVPB; Infused Over: 60 mins; Site: right upper arm; 01/25 00:37 Follow up: Response: No adverse reaction; IV Status: Completed infusion at6 01/24 21:36 Drug: MethylPrednisoLONE IVP 125 mg IVP once Route: IVP; Site: right upper arm; at6 01/25 00:37 Follow up: Response: No adverse reaction at6 01/24 21:38 Drug: HYDROmorphone IVP 0.5 mg IVP once Route: IVP; Site: right upper arm; at6 01/25 00:37 Follow up: Response: Pain is decreased at6 Medication: 01/24 20:11 VIS not applicable for this client. at6 Outcome: 18:37 Decision to Hospitalize by Provider. farhat 20:11 Admitted to ER Hold. Please see [facility] for further documentation. at6 20:11 Condition: stable 20:11 Instructed on the need for admit, 21:13 ER care complete, transfer ordered by . tt7 01/25 01:01 Patient left the ED. at6 Signatures: Dispatcher [employer] EDMS Sharad Vargas MD MD cha Hall, Patricia, RN RN ph Vick Solis, RN RN ll1 Soco Chowdhury Vivian vk McDonald, Brad, RN RN bm8 Omar Lainez jc4 Cherise Ribeiro RN RN cc6 SHANNAN LUNDBERG RN RN dd2 Jovan Frias Jr RN RN nh2 Trae Renner, DO tt7 Asia Renner RN RN at6 Corrections: (The following items were deleted from the chart) 01/24 16:27 16:21 Chief complaint: Patient states: PAIN TO LT UPPER STOMACH THAT RADIATES TO RT dd2 UPPER STOMACH ALL THE WAY AROUND TO BACK, AND CHEST. PT REPORTS THIS HAS BEEN HURTING FOR 3.5 WEEKS. PT DENIES N/V. PT STATES HE WAS HERE ON 01/11 WITH SAME PAIN AND WAS SENT HERE TODAY BY GI. dd2 18:18 16:34 General: Appears in no apparent distress. uncomfortable, Behavior is calm, cc6 cooperative, appropriate for age, ph 18:56 05:20 Reassessment: Patient and/or family updated on plan of care and expected cc6 duration. Pain level reassessed. Patient is alert, oriented x 3, equal unlabored respirations, skin warm/dry/pink. cc6 22:06 22:05 BP 157 / 7; Pulse 73bpm; Resp 18bpm; Pulse Ox 95% RA; at6 at6 23:31 23:30 BP 150 / 80; Pulse 74bpm; Resp 72bpm; Pulse Ox 96% RA; nh2 nh2
--- NOTE | 2025-01-24 18:38 | EDPHYS ---
Physician Documentation [facility] Name: Getachew Ervin Age: 74 yrs Sex: Male : 1950 Arrival Date: 01/24/2025 Time: 16:07 Bed 7 Private MD: ED Physician Trae Renner HPI: 01/24 18:11 This 74 yrs old Male presents to ER via Ambulatory with complaints of farhat Abdominal Pain. 18:11 The patient or guardian reports chest pain that is located primarily in the substernal farhat area, epigastric area. Onset: 21 day(s) ago. The patient presents with abdominal pain in the epigastric area, in the upper abdomen. Onset: The symptoms/episode began/occurred 21 day(s) ago. NO TRAUMA , RECENTCABG. The pain does not radiate. Onset: The symptoms/episode began/occurred 21 day(s) ago. The symptoms do not radiate. Modifying factors: The symptoms are alleviated by nothing, remaining still, the symptoms are aggravated by food, pressure. Historical: - Allergies: 16:24 No Known Allergies; dd2 - PMHx: 16:24 Diabetes - NIDDM; GERD; Hyperlipidemia; Hypertension; Kidney stones; dd2 16:25 Coronary atherosclerosis; dd2 - PSHx: 16:24 Coronary artery bypass graft; dd2 - Immunization history:: Adult Immunizations up to date. - Infectious Disease History:: Denies. - Social history:: Smoking status: Patient denies any tobacco usage or history of. - Family history:: not pertinent. ROS: 18:11 Constitutional: Negative for fever, chills, and weight loss, Eyes: Negative for injury, farhat pain, redness, and discharge, ENT: Negative for injury, pain, and discharge, Neck: Negative for injury, pain, and swelling, Respiratory: Negative for shortness of breath, cough, wheezing, and pleuritic chest pain, Back: Negative for injury and pain, : Negative for injury, bleeding, discharge, and swelling, MS/Extremity: Negative for injury and deformity, Skin: Negative for injury, rash, and discoloration, Neuro: Negative for headache, weakness, numbness, tingling, and seizure, Psych: Negative for depression, anxiety, suicide ideation, homicidal ideation, and hallucinations, Allergy/Immunology: Negative for hives, rash, and allergies, Endocrine: Negative for neck swelling, polydipsia, polyuria, polyphagia, and marked weight changes, Hematologic/Lymphatic: Negative for swollen nodes, abnormal bleeding, and unusual bruising, 18:11 Cardiovascular: Positive for chest pain, 18:11 Abdomen/GI: Positive for abdominal pain, abdominal cramps, abdominal distension, of the right upper quadrant and left upper quadrant, Exam: 18:11 Constitutional: This is a well developed, well nourished patient who is awake, alert, farhat and in no acute distress. Head/Face: Normocephalic, atraumatic. Eyes: Pupils equal round and reactive to light, extra-ocular motions intact. Lids and lashes normal. Conjunctiva and sclera are non-icteric and not injected. Cornea within normal limits. Periorbital areas with no swelling, redness, or edema. ENT: Nares patent. No nasal discharge, no septal abnormalities noted. Tympanic membranes are normal and external auditory canals are clear. Oropharynx with no redness, swelling, or masses, exudates, or evidence of obstruction, uvula midline. Mucous membranes moist. Neck: Trachea midline, no thyromegaly or masses palpated, and no cervical lymphadenopathy. Supple, full range of motion without nuchal rigidity, or vertebral point tenderness. No Meningismus. Chest/axilla: Normal chest wall appearance and motion. Nontender with no deformity. No lesions are appreciated. Cardiovascular: Regular rate and rhythm with a normal S1 and S2. No gallops, murmurs, or rubs. Normal PMI, no JVD. No pulse deficits. Respiratory: Lungs have equal breath sounds bilaterally, clear to auscultation and percussion. No rales, rhonchi or wheezes noted. No increased work of breathing, no retractions or nasal flaring. Back: No spinal tenderness. No costovertebral tenderness. Full range of motion. Male : Normal genitalia with no discharge or lesions. Skin: Warm, dry with normal turgor. Normal color with no rashes, no lesions, and no evidence of cellulitis. MS/ Extremity: Pulses equal, no cyanosis. Neurovascular intact. Full, normal range of motion., bilateral aka Neuro: Awake and alert, GCS 15, oriented to person, place, time, and situation. Cranial nerves II-XII grossly intact. Motor strength 5/5 in all extremities. Sensory grossly intact. Cerebellar exam normal. Normal gait. Psych: Awake, alert, with orientation to person, place and time. Behavior, mood, and affect are within normal limits. 18:11 ECG was reviewed by the Attending Physician. 18:11 Musculoskeletal/extremity: Circulation is intact in all extremities. Sensation intact. Compartment Syndrome exam of affected extremity: is normal. Weight bearing: able to fully bear weight, DVT Exam: No signs of deep vein thrombosis. no pain, no swelling, no tenderness, negative Homans' sign noted on exam, no appreciated bluish discoloration, no erythema, no increased warmth, Calves: are non-tender, have equal circumference, 18:40 Abdomen/GI: Inspection: distension, Bowel sounds: normal, Palpation: mild abdominal farhat tenderness, in the epigastric area, right upper quadrant and left upper quadrant, Liver: no appreciated palpable abnormalities, Hernia: not appreciated, Vital Signs: 16:21 BP 150 / 88; Pulse 77; Resp 16; Temp 98.3; Pulse Ox 100% ; Weight 83.91 kg; Pain 10/10; dd2 17:20 BP 168 / 81; Pulse 102; Resp 18; Pulse Ox 100% on R/A; cc6 18:56 BP 140 / 77; Pulse 74; Resp 17; Pulse Ox 97% on R/A; Pain 5/10; cc6 19:18 BP 141 / 77; Pulse 67; Resp 18; Pulse Ox 97% on R/A; at6 20:12 BP 137 / 82; Pulse 75; Resp 13; Temp 98.3; Pulse Ox 96% ; bm8 22:05 BP 157 / 77; Pulse 73; Resp 18; Pulse Ox 95% on R/A; at6 23:00 BP 125 / 67; Pulse 66; Resp 14; Pulse Ox 95% on R/A; nh2 23:30 BP 150 / 80; Pulse 74; Resp 14; Pulse Ox 96% on R/A; nh2 23:59 BP 148 / 77; Pulse 77; Resp 13; Pulse Ox 95% on R/A; nh2 01/25 00:57 BP 143 / 81; Pulse 85; Resp 18; Temp 98.9; Pulse Ox 93% ; at6 01/24 16:21 Pain Scale: Adult dd2 18:56 Pain Scale: Adult cc6 MDM: 01/24 16:36 Medical Screening Exam initiated farhat 18:26 Differential diagnosis: abnormal EKG, acute myocardial infarction, acute pericarditis, farhat anxiety, coronary artery disease chest wall pain, congestive heart failure cholecystitis, Cholelithiasis costochondritis, esophagitis, gastritis, hiatal hernia, myocarditis, pancreatitis, peptic ulcer disease, pericarditis, pneumonia, pneumothorax, pulmonary embolus, stable angina, thoracic aortic disection, unstable angina, acute coronary syndrome, appendicitis, bowel obstruction, coronary artery disease, cholecystitis, Cholelithiasis, diverticulitis, gastritis, gastroesophageal reflux disease, GI Bleed, Hepatitis, Herpes Zoster, Irritable bowel syndrome, sympomatic leaking abdominal aortic aneurysm, Mesenteric ischemia or infarction, non-specific abd pain, pancreatitis, Peptic Ulcer Disease, Perf. Duodenal Ulcer, Perf. Gastric Ulcer, Peritonitis, Prostatitis, Pyelonephritis, Testicular Torsion, Ureterolithiasis, urinary tract infection. Differential Diagnosis altered mental status, sepsis, flu. HEART Score: History: Slightly Suspicious (0), ECG: Non specific repolarization disturbance / LBTB / PM (1), Age: > or = 65 years (2), Risk Factors: > or = 3 Risk factors for atherosclerotic disease (2), [Hypercholesterolemia] [Hypertension] [DM] [+ Family HX] [Obesity] Troponin: < or = 1 x Normal Limit (0). The patient was not given aspirin in the Emergency Department. CLEO Risk Score: 1 - patient's age is greater or equal to 65 years, 1 - Three or more CAD risk factors, 1- Known CAD, 1 - ASA use in past 7 days, TOTAL SCORE = 4. Data reviewed: vital signs, nurses notes, lab test result(s), EKG, radiologic studies, CT scan, plain films. Consideration of Admission/Observation Patient was admitted/placed on observation. Escalation of care including admission/observation considered. I considered the following discharge prescriptions or medication management in the emergency department Medications were administered in the Emergency Department. See MAR. Independent interpretation of the following test(s) in the Emergency Department EKG: See my EKG interpretation above. Test considered but Not performed: Ultrasound NO 2 D ECHO. Historians other than the Patient: Spouse/Significant Other: WELL INFORMED. Care significantly affected by the following chronic conditions: Diabetes, Hypertension, KIDNEY STONES, HYPERLIPID EMIA. Counseling: I had a detailed discussion with the patient and/or guardian regarding the historical points, exam findings, and any diagnostic results supporting the discharge/admit diagnosis, the presence of at least one elevated blood pressure reading (>120/80) during this emergency department visit, lab results, radiology results, the need for further work-up and treatment in the hospital. 21:34 ED course: I took over care of this patient from Dr. Vargas, this is a 74-year-old tt7 male who has been having progressively worsening epigastric abdominal pain for the past 4 weeks, past medical history includes diabetes, GERD, hypertension, coronary artery disease status post CABG, he received cardiac evaluation in the emergency department as well as CT angiogram of the aorta, laboratory studies show a mild leukocytosis, CT imaging showed adventitial fat stranding around the celiac trunk and a luminal defect in the proximal common hepatic artery, findings concerning for vasculitis, other inflammatory condition, or less likely infection. Patient has been having significant pain requiring treatment with high doses of parenteral opioids. I have treated the patient with empiric Zosyn and dose of IV methylprednisolone. I believe that patient would be best suited at a facility with more resources for potential GI, vascular specialist, or rheumatologic consultation, we will proceed with transfer to a higher level of care. 22:55 ED course: I spoke with hospitalist Dr. Calderón at [facility] and tt7 we discussed the patient's clinical presentation, vital signs, laboratory study results, diagnostic imaging results, and emergency department interventions, he accepts the patient for transfer. 01/24 16:18 Order name: Basic Metabolic Panel; Complete Time: 20:37 farhat 01/24 20:38 Interpretation: Normal except: NA 134; GLUC 110; GFR 89. cp 01/24 16:18 Order name: CBC with Diff; Complete Time: 18:36 farhat 01/24 16:18 Order name: LFT's; Complete Time: 20:37 farhat 01/24 16:18 Order name: Magnesium; Complete Time: 20:37 farhat 01/24 16:18 Order name: NT PRO-BNP; Complete Time: 20:37 farhat 01/24 16:18 Order name: PT-INR; Complete Time: 18:36 farhat 01/24 16:18 Order name: Troponin HS; Complete Time: 20:37 farhat 01/24 16:18 Order name: Lipase; Complete Time: 20:37 farhat 01/24 16:18 Order name: UA Rfx Alcides Cult if indicated; Complete Time: 18:36 [facility] 01/24 18:38 Order name: Lipid Profile; Complete Time: 20:37 [facility] 01/24 21:17 Order name: CRP; Complete Time: 21:38 tt 01/24 21:39 Order name: Lactate w/ 2H reflex if indic.; Complete Time: 22:45 tt7 01/24 16:18 Order name: XRAY Chest (1 view); Complete Time: 18:36 [facility] 01/24 16:18 Order name: CT Aorta for Dissection; Complete Time: 20:37 [facility] 01/24 18:02 Order name: US Abdomen Limited; Complete Time: 20:37 [facility] 01/24 16:18 Order name: EKG; Complete Time: 16:18 [facility] 01/24 16:18 Order name: Cardiac monitoring; Complete Time: 17:37 [facility] 01/24 16:18 Order name: EKG - Nurse/Tech; Complete Time: 17:37 [facility] 01/24 16:18 Order name: IV Saline Lock; Complete Time: 18:43 [facility] 01/24 16:18 Order name: Labs collected and sent; Complete Time: 18:43 [facility] 01/24 16:18 Order name: O2 Per Protocol; Complete Time: 17:37 [facility] 01/24 16:18 Order name: O2 Sat Monitoring; Complete Time: 17:37 [facility] 01/24 18:13 Order name: Labs - recollect needed: recollect green top; Complete Time: 18:32 bd EC:11 Rate is 72 beats/min. Rhythm is regular. QRS [employer] is Normal. OK interval is normal. QRS farhat interval is normal. QT interval is normal. No Q waves. T waves are Normal. No ST changes noted. Clinical impression: NSR w/ Non-specific ST/T Changes and No evidence of ischemia. Interpreted by me. Reviewed by me. Administered Medications: 18:00 Drug: morphine IVP or IV 4 mg IVP once over 4 mins Route: IVP; Infused Over: 4 mins; cc6 Site: right upper arm; 19:01 Follow up: Response: No adverse reaction cc6 18:39 Drug: morphine IVP or IV 4 mg IVP once over 4 mins Route: IVP; Infused Over: 4 mins; cc6 Site: right upper arm; 19:00 Follow up: Response: No adverse reaction; Pain is decreased; RASS: Alert and Calm (0) cc6 18:40 Drug: Ondansetron Oral Disintegrating Tablet Oral Disintegrating Tablet 8 mg PO once; cc6 may repeat once in 8-12 hours Route: PO; 19:00 Follow up: Response: No adverse reaction cc6 18:40 Drug: Famotidine IVP 20 mg IVP once; dilute with 10 mL 0.9% NaCl; give over 2 minutes cc6 Route: IVP; Site: right upper arm; 19:00 Follow up: Response: No adverse reaction cc6 18:42 Drug: NS 0.9% IV 1000 ml IV at 1000 ml once; to be given as a bolus over 60 minutes cc6 Route: IV; Rate: 1000 ml; Site: right upper arm; 21:18 Follow up: Response: No adverse reaction; IV Status: Completed infusion at6 19:49 Drug: HYDROmorphone IVP 1 mg IVP once Route: IVP; Site: right upper arm; bm8 20:09 Follow up: Response: Pain is decreased at6 21:36 Drug: Piperacillin-Tazobactam IVPB 4.5 grams IVPB once over 60 mins; (mix in 100 mL NS) at6 Route: IVPB; Infused Over: 60 mins; Site: right upper arm; 01/25 00:37 Follow up: Response: No adverse reaction; IV Status: Completed infusion at6 01/24 21:36 Drug: MethylPrednisoLONE IVP 125 mg IVP once Route: IVP; Site: right upper arm; at6 01/25 00:37 Follow up: Response: No adverse reaction at6 01/24 21:38 Drug: HYDROmorphone IVP 0.5 mg IVP once Route: IVP; Site: right upper arm; at6 01/25 00:37 Follow up: Response: Pain is decreased at6 Disposition: 01/24 22:55 Co-signature as Attending Physician, Trae Renner DO. tt7 Disposition Summary: 01/24/25 21:13 Transfer Ordered Notes: Transfer Location: [facility] tt7 Reason: Higher level of care tt7 Condition: Fair(01/24/25 21:13) tt7 Problem: new(01/24/25 21:13) tt7 Symptoms: are unchanged(01/24/25 21:13) tt7 Accepting Physician: Dr. Calderón(01/25/25 01:01) at6 Diagnosis - Abdominal pain, Generalized tt7 - Abnormal findings on diagnostic imaging of liver and biliary tract tt7 - Abnormal findings on diagnostic imaging of other specified body structures tt7 Forms: - Medication Reconciliation Form tt7 - SBAR form tt7 Signatures: Dispatcher [employer] EDMS Cheli Dawson Corey, MD MD cha Page, Corey, BOGDANC PAJuan Blair cp RN RN bm8 Cherise Ribeiro, RN RN cc6 SHANNAN LUNDBERG RN RN dd2 Trae Renner, DO tt7 Asia Renner RN RN at6 Corrections: (The following items were deleted from the chart) 16:18 16:18 Angio Aorta For Dissection+CT.RAD.BRZ ordered. EDKS EDMS 18:37 18:37 Observation farhat farhat 18:37 18:37 Telemetry/MedSurg (observation) farhat farhat 18:37 18:37 farhat farhat 21:10 18:37 Wise, Mohammad farhat tt7 21:10 18:37 Fair farhat tt7 21:10 18:37 new farhat tt7 21:10 18:37 have improved farhat tt7 21:10 18:37 Standard farhat tt7 21:10 18:37 Chest pain, unspecified farhat tt7 21:10 18:37 Epigastric abdominal tenderness farhat tt7 21:10 18:37 Type 2 diabetes mellitus with hyperglycemia farhat tt7 21:10 18:37 Obesity, unspecified farhat tt7 21:10 18:37 Inpatient Admission farhat tt7 21:10 18:37 Telemetry/MedSurg (Inpatient) farhat tt7 21:10 18:37 farhat tt7 21:10 18:59 Elevated white blood cell count farhat tt7 22:54 21:13 Dr. hunter tt7 01/25 01:01 10 22:54 Dr. Calderón tt7 at6
[2025-01-24 19:04] LABS: ALT/SGPT 36.0 U/L (16-61); AST/SGOT 14.0 U/L (15-37); Albumin 3.7 g/dL (3.4-5.0); Albumin/Globulin Ratio 1.1 (1.1-1.8); Alkaline Phosphatase 86.0 U/L (45-117); Anion Gap 9.0 mEq/L (5.0-15.0); BUN Blood Urea Nitrogen 16.0 mg/dL (7-18); Bilirubin Indirect, Calculated 0.8 mg/dL (0.2-0.8); Globulin 3.3 g/dL (2.3-3.5); Glucose Level 110.0 mg/dL (74-106); Lipase 33.0 U/L (13-75); Magnesium 2.2 mg/dL (1.6-2.4); NT PRO-BNP 107.0 pg/mL (<450); Potassium 4.0 mEq/L (3.5-5.1); Troponin High Sensitivity 9.5 pg/mL (<58.9)
[2025-01-24 19:43] LABS: HDL Cholesterol 60.0 mg/dL (40-60); LDL Cholesterol, Calculated 28.0 mg/dL (<130); LDL Cholesterol,Calc NonReport 28.0
[2025-01-24] MEDS ORDERED: HYDROMORPHONE HCL 1 MG/ML INJ ONE (19:49)
--- NOTE | 2025-01-24 19:50 | RAD REPORT ---
EXAMINATION: US Abdomen Exam Limited CLINICAL HISTORY: [facility] MAIN N Abd pain;Abdominal distention Bed Name: COMPARISON: 01/10/2025. TECHNIQUE: Limited upper abdominal grayscale and color flow sonographic images. FINDINGS: Gallbladder: Mild dependent sludge. No echogenic calculi. No wall thickening or pericholecystic fluid . Negative sonographic Collins sign. Bile ducts: No intrahepatic or extrahepatic biliary dilatation. Common bile duct measures /5 mm. Liver: Visualized portions of the liver demonstrate normal echogenicity with no suspicious findings. Fluid: No ascites. IMPRESSION: Mild gallbladder sludge. No findings to suggest acute cholecystitis.
--- NOTE | 2025-01-24 20:21 | RAD REPORT ---
EXAM: Angio Aorta For Dissection HISTORY: [facility] MAIN NA Abd pain;Flank pain Bed Name: IW3 COMPARISON: None TECHNIQUE: Multiple contiguous axial images were obtained a CTA of the chest and abdomen with contras t per aortic dissection protocol. Sagittal and coronal 3-D MIP reformats were performed. One or more of the following dose reduction techniques were used: Automated exposure control, adjustment of the mA and kV according to patient size, and iterative reconstruction. Unless otherwise specified, incidental findings do not require dedicated imaging follow-up. FINDINGS: PULMONARY ARTERIES: Normal in caliber without filling defects to suggest pulmonary emboli. MEDIASTINUM: No hilar or mediastinal lymphadenopathy. LUNGS: 5 mm right lower lobe perifissural nodule. No focal infiltrates or masses. PLEURAL SPACE: No pleural effusion or pneumothorax. LIVER: Subcapsular peripheral right lobe 2 cm lesion is not well characterized. KIDNEYS: Bilateral renal nonobstructing calculi largest at the right upper pole measuring 5 mm . SPLEEN: Unremarkable. PANCREAS: Unremarkable. BOWEL: Unremarkable apart from distal colonic diverticulosis. RETROPERITONEUM: No lymphadenopathy BONES: Degenerative changes in the spine. Prostatomegaly. ASCENDING THORACIC AORTA: Normal caliber without evidence of dissection or aneurysmal dilatation. DESCENDING THORACIC AORTA: Normal caliber without evidence of dissection or aneurysmal dilatation. ABDOMINAL AORTA: Normal caliber without evidence of dissection or aneurysmal dilatation. CELIAC TRUNK: Patent with fat stranding along the distal celiac axis and proximal common hepatic tiffany ry, with mild luminal irregularity along the proximal hepatic artery. SMA: Patent ZACHARY: Patent RENAL ARTERIES: Bilateral single renal arteries without significant atherosclerotic disease IMPRESSION: Adventitial fat stranding along the celiac axis and adjacent proximal common hepatic artery, with mil d luminal irregularity along the latter. Inflammatory etiologies of vasculitis, or less likely infectious etiologies, are to be considered. Other incidental findings including nonobstructing right renal calculi.
[2025-01-24] MEDS ORDERED: METHYLPREDNISOLONE 125 MG INJ ONE (21:24)
[2025-01-24] MEDS ORDERED: NA CHLORIDE 0.9% 100 ML ONE (21:25)
[2025-01-24] MEDS ORDERED: PIPERACIL/TAZO 4.5 GM VIAL IV ONE (21:25)
[2025-01-24] MEDS ORDERED: HYDROMORPHONE HCL 0.5 MG/0.5 ML INJ ONE (21:38)
[2025-01-25 01:38] VITALS: BP 143/81; TEMP 98.9; O2SAT 93
== END 2025-01-25 01:01 | disposition short-term general hospital (02) ==
LOC: ER 16:07
DX: R10.84 Generalized abdominal pain (principal); R93.2 Abnormal findings on diagnostic imaging of liver and biliary tract; R93.89 Abnormal findings on diagnostic imaging of other specified body structures; Z95.1 Presence of aortocoronary bypass graft
CPT/HCPCS: 96365; 96361; 93005; 85025; 80048; 36415; 83735; 85610; 80061; 80076; 83605; 81003; 84484; 83690; 83880; 86140; 71275; 74175; 71045; 76705; 96375; 99285; 96366; Q9967; Q0162; J1171 ×2; J2919; J7030